=== PATIENT | male | born 1955 ===

== ENCOUNTER 2020-03-09 07:16 | Outpatient (REF) | payer OTHER, SELFPAY ==
[2020-03-09 07:50] LABS: MANUAL DIFF FLAG NO
[2020-03-09 07:59] LABS: Eosinophils Absolute Auto 0.2 X10*3/uL (0.0-0.4); Eosinophils Percent Auto 5.2 % (0-4); Hematocrit 41.6 % (42-52); Hemoglobin 13.7 g/dl (14.0-18.0); Lymphocytes Percent Auto 35.7 % (20-40); Mean Corpuscular HGB Conc 32.9 g/dl (31.0-36.0); Mean Corpuscular Hemoglobin 30.4 pg (27.0-33.0); Mean Corpuscular Volume 92.4 fL (80-98); Mean Platelet Volume 10.3 fL (9.4-12.4); Monocytes Absolute Auto 0.5 X10*3/uL (0.1-1.2); Monocytes Percent Auto 16.1 % (2-11); Neutrophils Absolute Auto 1.2 X10*3/uL (2.0-8.3); Platelet Count 201 X10*3/uL (160-400); Red Cell Distribution Width 12.4 % (11.0-16.0); White Blood Count 2.9 X10*3/uL (4.8-10.8)
[2020-03-09 08:44] LABS: Alanine Aminotransferase 23 U/L (0-40); Albumin Level 4.8 g/dL (3.5-5.0); Alkaline Phosphatase 60 U/L (39-117); Amylase 51 U/L (28-100); Anion Gap 11 (12-20); Aspartate Amino Transferase 23 U/L (5-37); Bilirubin Total 0.8 mg/dL (0.0-1.0); Blood Urea Nitrogen 22 mg/dL (9-16); Calcium 9.6 mg/dL (8.4-10.2); Carbon Dioxide 30 mmol/L (22-29); Chloride 105 mmol/L (96-108); Cholesterol 186 mg/dL; Estimated Glomerular Filt Rate > 60; Glucose Random 107 mg/dL (60-115); HDL Cholesterol 70 mg/dL; Iron 90 mcg/dL (45-160); LDL Cholesterol Calculated 104 mg/dl; Lipase 24 U/L (8-78); Percent Iron Saturation 29 % (15-50); Potassium 5.2 mmol/l (3.3-5.1); Sodium 141 mmol/L (135-145); Total Iron Binding Capacity 314 mcg/dL (228-428); Total Protein 6.9 g/dL (6.5-8.0); Triglycerides 62 mg/dL; Unsaturated Iron Binding 224 ug/dL
[2020-03-09 09:02] LABS: Lactate Dehydrogenase 164 U/L (118-273)
[2020-03-09 09:13] LABS: Ferritin 87 ng/mL (20-250); Prostate Specific Antigen 1.76 ng/mL (<0.05-4.0); Thyroid Stimulating Hormone 0.77 mIU/mL (0.32-4.0)
[2020-03-09 18:02] LABS: T4 Thyroxine 4.9 ug/dL (4.5-12.0)
[2020-03-11 05:12] LABS: Folate 13.6 ng/mL (> or = 4.0); Vitamin B12 522 pg/mL (200-900)
== END 2020-03-09 07:17 | disposition home or self-care (01) ==
LOC: HO.LAB 07:16
PROVIDERS: PCP Internal Medicine; Visit Provider Internal Medicine
DX: I63.9 Cerebral infarction, unspecified (principal); G47.33 Obstructive sleep apnea (adult) (pediatric); E78.00 Pure hypercholesterolemia, unspecified; F41.9 Anxiety disorder, unspecified; I10 Essential (primary) hypertension
CPT/HCPCS: 36415; 80053; 80061; 82150; 82607; 82728; 82746; 83540; 83615; 83690; 84153; 84436; 84443; 85025

== ENCOUNTER 2020-05-22 08:29 | Outpatient (REF) | payer OTHER, SELFPAY ==
[2020-05-22 09:05] LABS: COVID-19 Test Negative (Negative); IDNOW Serial# 55D5AD1C
== END 2020-05-22 08:30 | disposition home or self-care (01) ==
LOC: HO.EMPCOV 08:29
PROVIDERS: PCP Internal Medicine; Visit Provider Internal Medicine
DX: Z20.828 Contact with and (suspected) exposure to other viral communicable diseases (principal)
CPT/HCPCS: 87635; C9803

== ENCOUNTER 2020-06-15 07:06 | Outpatient (REF) | payer OTHER, SELFPAY ==
[2020-06-15 08:27] LABS: MANUAL DIFF FLAG NO
[2020-06-15 08:32] LABS: Basophils Percent Auto 1.1 % (0-2); Eosinophils Absolute Auto 0.2 X10*3/uL (0.0-0.4); Eosinophils Percent Auto 5.6 % (0-4); Hematocrit 41.8 % (42-52); Hemoglobin 13.9 g/dl (14.0-18.0); Imm Gran Abs Auto 0.01 X10*3/uL (0.00-0.03); Imm Gran Pct Auto 0.3 % (0.0-0.4); Immature Retic Fraction 5.9 % (2.3-13.4); Lymphocytes Absolute Auto 1.1 X10*3/uL (1.2-4.9); Lymphocytes Percent Auto 28.3 % (20-40); Mean Corpuscular HGB Conc 33.3 g/dl (31.0-36.0); Mean Corpuscular Volume 93.3 fL (80-98); Mean Platelet Volume 10.5 fL (9.4-12.4); Monocytes Absolute Auto 0.4 X10*3/uL (0.1-1.2); Monocytes Percent Auto 11.7 % (2-11); Platelet Count 222 X10*3/uL (160-400); Red Blood Count 4.48 X10*6/uL (4.60-5.80); Red Cell Distribution Width 11.9 % (11.0-16.0); Retic HGB Equivalent 36.1 pg (30.0-35.0); Reticulocyte Percent 1.4 % (0.5-1.8); Reticulocytes Absolute 0.062 X10*6/uL (0.026-0.095); White Blood Count 3.8 X10*3/uL (4.8-10.8)
[2020-06-15 09:00] LABS: Alanine Aminotransferase 40 U/L (0-40); Albumin Level 4.6 g/dL (3.5-5.0); Alkaline Phosphatase 62 U/L (39-117); Anion Gap 12 (12-20); Aspartate Amino Transferase 34 U/L (5-37); Bilirubin Total 0.8 mg/dL (0.0-1.0); Blood Urea Nitrogen 18 mg/dL (9-16); Calcium 9.6 mg/dL (8.4-10.2); Carbon Dioxide 30 mmol/L (22-29); Chloride 105 mmol/L (96-108); Cholesterol 146 mg/dL; Estimated Glomerular Filt Rate > 60; Glucose Random 103 mg/dL (60-115); HDL Cholesterol 73 mg/dL; Iron 78 mcg/dL (45-160); LDL Cholesterol Calculated 64 mg/dl; Percent Iron Saturation 27 % (15-50); Potassium 5.2 mmol/l (3.3-5.1); Sodium 142 mmol/L (135-145); Total Iron Binding Capacity 294 mcg/dL (228-428); Total Protein 6.7 g/dL (6.5-8.0); Triglycerides 46 mg/dL; Unsaturated Iron Binding 216 ug/dL
[2020-06-15 09:21] LABS: Ferritin 110 ng/mL (20-250)
[2020-06-17 04:39] LABS: Folate 15.6 ng/mL (> or = 4.0); Vitamin B12 516 pg/mL (200-900)
== END 2020-06-15 07:07 | disposition home or self-care (01) ==
LOC: HO.LAB 07:06
PROVIDERS: PCP Internal Medicine; Visit Provider Internal Medicine
DX: E78.00 Pure hypercholesterolemia, unspecified (principal); E78.2 Mixed hyperlipidemia; D64.9 Anemia, unspecified
CPT/HCPCS: 36415; 80053; 80061; 82607; 82728; 82746; 83540; 85025; 85045

== ENCOUNTER 2020-07-01 08:14 | Outpatient (REF) | payer OTHER, SELFPAY ==
--- NOTE | 2020-07-01 09:49 | MHC.AU.P13 ---
Adult Audiological Evaluation Date of Visit: 07/01/20 Reason for Appointment: History of hearing loss. Patient arrives to determine if there has been a change in his hearing. He reports he has a difficult time with distinction/clarity when listening to speech. Previous Hearing Test Results: At this clinic on 11/23/2017- Normal from 250-1000 Hz, steeply sloping to moderately-severe sensorineural hearing loss bilaterally Ear History: Recent Ear Drainage: None Reported Recent Ear Pain: None Reported Family History of Hearing Loss?: Yes Recent Ear Infections: None Reported History of Ear Wax Buildup: None Reported Bothersome Tinnitus/Ringing/Noises in Ears: Both Ears History of occupational noise exposure?: Yes Hearing Instrument History- Right Ear: Tank Filler: Recorded Future Model: [employer] AI 2400 THANIA Serial Number: [id number] Battery Size: 312 Dispensed By[facility] Hearing Instrument History- Left Ear: Tank Filler: Recorded Future Model: [employer] AI 2400 THANIA Serial Number: [id number] Battery Size: 312 Dispensed By: [facility] Otoscopy: Right Ear: Unremarkable Left Ear: Unremarkable Tympanometry: Tympanometry performed due to: Patient report of problem with sound quality/clarity Right Ear: Normal Middle Ear System (Type A) Left Ear: Normal Middle Ear System (Type A) Hearing Evaluation: Transducer(s) Used: Insert Earphones Method: Conventional Audiometry Stimuli Used: Pure Tones Right Ear: Description of Hearing: Normal from 250-1000 Hz, steeply sloping to severe sensorineural hearing loss Left Ear: Description of Hearing: Normal from 250-1000 Hz, steeply sloping to severe sensorineural hearing loss Speech Recognition Threshold (SRT): Method Used: Recorded Lists Stimuli Used: Spondee Words Right Ear: 25 dBHL Left Ear: 25 dBHL Word Discrimination: Method: Recorded Lists Word Lists Used: NU-6 Right Ear: 88% at 75 dBHL Left Ear: 96% at 75 dBHL Most Comfortable Level (MCL): Right Ear: 65 dBHL Left Ear: 65 dBHL QuickSIN: 8 dB SNR Loss- Indicates moderate difficulty hearing in noise, compared to the average listener Comparison: Compared to the most recent evaluation: Thresholds have decreased bilaterally. Recommendations: Audiological re-evaluation in one year. Hearing protection should be used when around loud noise. Hearing aid maintenance performed today. Hearing aid(s) reprogrammed with updated test results. Diagnosis: Primary Diagnosis: H90.3 Bilateral Sensorineural Hearing Loss Secondary Diagnosis: H93.13 Tinnitus, Bilateral Services Performed: Comprehensive Audiological Evaluation (CPT 57065), Tympanometry (CPT 99871) Signature: Provider: Eugene Love, CCC-A
== END 2020-07-01 08:15 | disposition home or self-care (01) ==
LOC: HO.SH 08:14
PROVIDERS: Visit Provider Internal Medicine
DX: H90.3 Sensorineural hearing loss, bilateral (principal); H93.13 Tinnitus, bilateral
CPT/HCPCS: 92557; 92567

== ENCOUNTER → 2020-12-26 08:07 | Outpatient (BNVA) | payer OTHER, SELFPAY | PROVIDERS: PCP Internal Medicine; Visit Provider Internal Medicine | DX: Z76.89 Persons encountering health services in other specified circumstances (principal) | CPT/HCPCS: 99203 ==

== ENCOUNTER → 2020-12-31 08:03 | Outpatient (BNVA) | payer OTHER, SELFPAY | PROVIDERS: PCP Internal Medicine; Visit Provider Physician Assistant Medical | DX: Z13.89 Encounter for screening for other disorder (principal) | CPT/HCPCS: 99213 ==

== ENCOUNTER → 2021-01-13 07:38 | Outpatient (BNVA) | payer OTHER, SELFPAY | PROVIDERS: PCP Internal Medicine; Visit Provider Physician Assistant Medical | DX: Z76.89 Persons encountering health services in other specified circumstances (principal) | CPT/HCPCS: 99213 ==

== ENCOUNTER 2021-03-22 06:56 | Outpatient (REF) | payer OTHER, SELFPAY ==
[2021-03-22 07:07] LABS: MANUAL DIFF FLAG NO
[2021-03-22 07:30] LABS: Basophils Percent Auto 0.8 % (0-2); Eosinophils Absolute Auto 0.3 X10*3/uL (0.0-0.4); Eosinophils Percent Auto 6.9 % (0-4); Hematocrit 42.4 % (42-52); Hemoglobin 13.9 g/dl (14.0-18.0); Imm Gran Abs Auto 0.01 X10*3/uL (0.00-0.03); Imm Gran Pct Auto 0.3 % (0.0-0.4); Immature Retic Fraction 6.4 % (2.3-13.4); Lymphocytes Absolute Auto 1.2 X10*3/uL (1.2-4.9); Lymphocytes Percent Auto 31.4 % (20-40); Mean Corpuscular HGB Conc 32.8 g/dl (31.0-36.0); Mean Corpuscular Hemoglobin 30.4 pg (27.0-33.0); Mean Corpuscular Volume 92.8 fL (80-98); Mean Platelet Volume 10.2 fL (9.4-12.4); Monocytes Absolute Auto 0.6 X10*3/uL (0.1-1.2); Monocytes Percent Auto 14.5 % (2-11); Neutrophils Absolute Auto 1.8 X10*3/uL (2.0-8.3); Neutrophils Percent Auto 46.1 % (45-73); Platelet Count 196 X10*3/uL (160-400); Red Blood Count 4.57 X10*6/uL (4.60-5.80); Red Cell Distribution Width 12.3 % (11.0-16.0); Retic HGB Equivalent 35.4 pg (30.0-35.0); Reticulocyte Percent 1.3 % (0.5-1.8); White Blood Count 3.8 X10*3/uL (4.8-10.8)
[2021-03-22 07:50] LABS: Estimated Average Glucose 117 mg/dL; Hemoglobin A1c % 5.7 %
[2021-03-22 07:58] LABS: Alanine Aminotransferase 45 U/L (0-40); Albumin Level 4.5 g/dL (3.5-5.0); Alkaline Phosphatase 68 U/L (39-117); Anion Gap 10 (12-20); Aspartate Amino Transferase 35 U/L (5-37); Bilirubin Total 0.9 mg/dL (0.0-1.0); Blood Urea Nitrogen 21 mg/dL (9-16); Calcium 9.6 mg/dL (8.4-10.2); Carbon Dioxide 29 mmol/L (22-29); Chloride 106 mmol/L (96-108); Cholesterol 132 mg/dL; Estimated Glomerular Filt Rate > 60; Glucose Random 111 mg/dL (60-115); HDL Cholesterol 57 mg/dL; Iron 83 mcg/dL (45-160); LDL Cholesterol Calculated 68 mg/dl; Percent Iron Saturation 29 % (15-50); Potassium 4.9 mmol/L (3.3-5.1); Sodium 140 mmol/L (135-145); Total Iron Binding Capacity 286 mcg/dL (228-428); Total Protein 6.5 g/dL (6.5-8.0); Triglycerides 38 mg/dL; Unsaturated Iron Binding 203 ug/dL
[2021-03-22 08:12] LABS: Ferritin 173 ng/mL (20-250); Thyroid Stimulating Hormone 0.75 uIU/mL (0.32-4.0)
[2021-03-24 04:19] LABS: Folate 18.8 ng/mL (> or = 4.0); Vitamin B12 531 pg/mL (200-900)
[2021-03-24 21:57] LABS: Prot Elec - Albumin 4.5 g/dL (3.8-4.8); Prot Elec - Alpha1 0.3 g/dL (0.2-0.3); Prot Elec - Alpha2 0.6 g/dL (0.5-0.9); Prot Elec - Beta 1 0.4 g/dL (0.4-0.6); Prot Elec - Beta 2 0.3 g/dL (0.2-0.5); Prot Elec - Gamma 0.5 g/dL (0.8-1.7); Prot Elec - Total Protein 6.6 g/dL (6.1-8.1)
== END 2021-03-22 06:57 | disposition home or self-care (01) ==
LOC: HO.LAB 06:56
PROVIDERS: PCP Internal Medicine; Visit Provider Internal Medicine
DX: D64.9 Anemia, unspecified (principal); R79.89 Other specified abnormal findings of blood chemistry; N40.1 Benign prostatic hyperplasia with lower urinary tract symptoms; R39.12 Poor urinary stream; E78.00 Pure hypercholesterolemia, unspecified; R73.01 Impaired fasting glucose; Z86.73 Personal history of transient ischemic attack (TIA), and cerebral infarction without residual deficits
CPT/HCPCS: 36415; 80053; 80061; 82607; 82728; 82746; 83036; 83540; 84165; 84439; 84443; 85025; 85045

== ENCOUNTER 2021-07-15 07:56 | Outpatient (REF) | payer OTHER, SELFPAY ==
--- NOTE | 2021-07-18 13:37 | MHC.AU.AHA ---
Addendum entered and electronically signed by Eugene Sharma CCC-A 07/18/21 13:48: Amended to add signer. Original Note: Adult Audiological Evaluation Date of Visit: 07/15/21 Manager Ambulatory Used: Not Applicable Reason for Appointment: Audiologic re-evaluation due to question of change in hearing ability. Samuel reports he has been having trouble with the sound quality of his hearing aids. Previous Hearing Test Results: 07/01/2020 [facility] Normal hearing thresholds 250-1000 Hz, dropping to a severe high frequency sensorineural hearing loss bilaterally. Ear History: Family History of Hearing Loss?: Yes Bothersome Tinnitus/Ringing/Noises in Ears: Both ears History of occupational noise exposure?: Yes History: Yes Medical History: Medical History: Stroke, High Blood Pressure, High Cholesterol Medication List: Rosuvistatin, Clonazepam, Lisinopril, Clopidogrel, Omeprazole, Ezetimibe, Multivitamin, Iron, Vitamin D3 Hearing Instrument History- Right Ear: Lead Press Operator: Spinback Model: [employer] AI 2400 THANIA Serial Number: [id number] Battery Size: 312 Dispensed By: [employer] Date of Fittin Hearing Instrument History- Left Ear: Lead Press Operator: Keli Model: Kehinde AI 2400 THANIA Serial Number: [id number] Battery Size: 312 [facility] By[facility] Date of Fittin Otoscopy: Right Ear: Unremarkable Left Ear: Unremarkable Tympanometry: Not performed at today's visit as all previous test results have indicated normal middle ear function bilaterally. Hearing Evaluation: Transducer(s) Used: Insert Earphones Bone Conduction Method: Conventional Audiometry Stimuli Used: Pure Tones Right Ear: Description of Hearing: Normal hearing thresholds 250-1000 Hz, steeply dropping to a severe high frequency sensorineural hearing loss Left Ear: Description of Hearing: Normal hearing thresholds 250-1000 Hz, steeply dropping to a severe high frequency sensorineural hearing loss Speech Recognition Threshold (SRT): Method Used: Monitored Live Voice Stimuli Used: Spondee Words Right Ear: 15 dB HL Left Ear: 15 dB HL Word Discrimination: Method: Recorded Lists Word Lists Used: NU-6 Right Ear: 96% at 65 dB HL Left Ear: 84% at 65 dB HL Comparison: Compared to the most recent evaluation: Hearing is stable. Recommendations: Hearing aid maintenance performed today. Hearing aids reprogrammed with Samuel noting improvement in sound quality while in office. If further adjustments are needed, he is advised to schedule another appointment. Audiological re-evaluation in one year. Will send a reminder card. Diagnosis: Primary Diagnosis: H90.3 Bilateral Sensorineural Hearing Loss Secondary Diagnosis: H93.13 Tinnitus, Bilateral Services Performed: Comprehensive Audiological Evaluation (CPT 14495) Signature: Provider: Eugene Sharma, CCC-A
== END 2021-07-15 07:57 | disposition home or self-care (01) ==
LOC: HO.SH 07:56
PROVIDERS: Visit Provider Internal Medicine
DX: Z01.118 Encounter for examination of ears and hearing with other abnormal findings (principal); H90.3 Sensorineural hearing loss, bilateral; H93.13 Tinnitus, bilateral
CPT/HCPCS: 92557

== ENCOUNTER 2021-08-15 07:54 | Outpatient (REF) | payer OTHER, SELFPAY ==
--- NOTE | ~2021-08-15 | US_ITS ---
EXAMINATION: US ABDOMEN COMPLETE CLINICAL INFORMATION: Elevated LFTs. COMPARISON: Ultrasound abdomen limited and CT abdomen and pelvis 10/12/2019. Ultrasound abdomen complete 11/06/2015. TECHNIQUE: Real-time imaging of the abdominal viscera. FINDINGS: PANCREAS: Partially visualized head and the body of the pancreas with homogeneous echotexture. The tail is obscured by overlying gas. ABDOMINAL AORTA: The proximal, mid, and distal segments are normal in caliber. INFERIOR VENA CAVA: Visualized portions are normal. LIVER: The liver is normal in size. The liver contour is normal. There is mild increased liver echogenicity. No focal hepatic lesion. There is no intrahepatic biliary duct dilatation seen. GALLBLADDER: There is a nonmobile echogenic or calcified lesion along the inner gallbladder wall, question cholesterolosis versus an adherent radiopaque calculi. No additional lesions seen. The gallbladder is physiologically distended without evidence of stones, sludge, polyps, wall thickening or pericholecystic fluid. COMMON BILE DUCT: Normal in caliber measuring 0.2 cm in diameter. RIGHT KIDNEY: There is anechoic cyst in the lower pole measuring 2.2 x 1.1 x 1.3 cm. No hydronephrosis or renal calculi. The kidney measures 10.9 cm in maximum dimension. LEFT KIDNEY: There is anechoic cyst in lower pole measuring 1.2 x 0.8 x 1.1 cm. No hydronephrosis or renal calculi. The kidney measures 10.8 cm in maximum dimension. SPLEEN: Normal. The spleen measures 9.8 cm in maximum dimension. FREE FLUID: None. US/US abdomen complete IMPRESSION: Echogenic adherent stone versus cholesterolosis. No gallbladder wall thickening. Mild hepatic steatosis. Bilateral renal cysts. No echogenic renal calculi or hydronephrosis.
== END 2021-08-15 07:55 | disposition home or self-care (01) ==
LOC: HO.US 07:54
PROVIDERS: Visit Provider Internal Medicine
DX: K76.0 Fatty (change of) liver, not elsewhere classified (principal); R94.5 Abnormal results of liver function studies
CPT/HCPCS: 76700

== ENCOUNTER 2021-08-18 15:27 | Outpatient (REF) | payer OTHER, SELFPAY ==
[2021-08-18 15:50] LABS: MANUAL DIFF FLAG NO
[2021-08-18 16:02] LABS: Basophils Percent Auto 0.9 % (0-2); Eosinophils Absolute Auto 0.1 X10*3/uL (0.0-0.4); Eosinophils Percent Auto 2.4 % (0-4); Hematocrit 38.5 % (42.0-52.0); Imm Gran Abs Auto 0.02 X10*3/uL (0.00-0.03); Imm Gran Pct Auto 0.4 % (0.0-0.4); Lymphocytes Percent Auto 23.1 % (20-40); Mean Corpuscular HGB Conc 33.8 g/dl (31.0-36.0); Mean Corpuscular Hemoglobin 30.9 pg (27.0-33.0); Mean Corpuscular Volume 91.4 fL (80.0-98.0); Mean Platelet Volume 9.7 fL (9.4-12.4); Monocytes Absolute Auto 0.5 X10*3/uL (0.1-1.2); Monocytes Percent Auto 11.5 % (2-11); Neutrophils Absolute Auto 2.8 x10*3/uL (2.0-8.3); Neutrophils Percent Auto 61.7 % (45-73); Platelet Count 209 X10*3/uL (160-400); Red Blood Count 4.21 X10*6/uL (4.60-5.80); Red Cell Distribution Width 12.1 % (11.0-16.0); White Blood Count 4.5 X10*3/uL (4.8-10.8)
[2021-08-18 16:43] LABS: Alanine Aminotransferase 37 U/L (0-40); Albumin Level 4.6 g/dL (3.5-5.0); Alkaline Phosphatase 60 U/L (39-117); Aspartate Amino Transferase 30 U/L (5-37); Bilirubin Direct 0.3 mg/dL (0.0-0.5); Bilirubin Total 0.6 mg/dL (0.0-1.0); Total Protein 6.6 g/dL (6.5-8.0)
[2021-08-19 04:14] LABS: HBS Num1 2.52 mIU/mL (0-7.99); HBc Num1 0.12 S/CO (0.00-0.79); HBsAGNum1 0.19 S/CO (0.00-0.99); Hepatitis B Core Antibody Nonreactive (Nonreactive); Hepatitis B Surface Antigen Negative (Negative); ~Hepatitis B Surface Antibody NONREACTIVE (Nonreactive)
[2021-08-19 04:24] LABS: ~HepC Num1 0.11 S/CO (0.00-0.79); ~Hepatitis C Antibody Nonreactive (Nonreactive)
[2021-08-20 05:00] LABS: Hepatitis A Antibody IgG Nonreactive (Nonreactive); ~Hepatitis A Antibody IgG 0.22 S/CO (0.00-0.99)
[2021-08-20 15:26] LABS: Anti Nuclear Antibody Screen NEGATIVE (NEGATIVE)
[2021-08-21 14:25] LABS: Mitochondrial Antibodies NEGATIVE (NEGATIVE)
[2021-08-22 12:02] LABS: Smooth Muscle Antibody <20 U (<20)
== END 2021-08-18 15:28 | disposition home or self-care (01) ==
LOC: HO.LAB 15:27
PROVIDERS: Absent Provider Internal Medicine; PCP Internal Medicine; Visit Provider Internal Medicine Gastroenterology
DX: R94.5 Abnormal results of liver function studies (principal)
CPT/HCPCS: 36415; 80076; 85025; 86015; 86038; 86039; 86255; 86256; 86704; 86706; 86708; 86803; 87340

== ENCOUNTER 2022-04-03 06:04 | Outpatient (REF) | payer OTHER, SELFPAY ==
[2022-04-03 06:16] LABS: MANUAL DIFF FLAG NO
[2022-04-03 07:39] LABS: Basophils Percent Auto 0.8 % (0-2); Eosinophils Absolute Auto 0.2 X10*3/uL (0.0-0.4); Eosinophils Percent Auto 4.2 % (0-4); Hematocrit 39.9 % (42.0-52.0); Hemoglobin 13.6 g/dl (14.0-18.0); Imm Gran Abs Auto 0.01 X10*3/uL (0.00-0.03); Imm Gran Pct Auto 0.3 % (0.0-0.4); Immature Retic Fraction 5.6 % (2.3-13.4); Lymphocytes Absolute Auto 1.2 X10*3/uL (1.2-4.9); Mean Corpuscular HGB Conc 34.1 g/dl (31.0-36.0); Mean Corpuscular Hemoglobin 31.4 pg (27.0-33.0); Mean Corpuscular Volume 92.1 fL (80.0-98.0); Mean Platelet Volume 10.4 fL (9.4-12.4); Monocytes Absolute Auto 0.5 X10*3/uL (0.1-1.2); Monocytes Percent Auto 14.1 % (2-11); Neutrophils Absolute Auto 1.9 x10*3/uL (2.0-8.3); Neutrophils Percent Auto 49.6 % (45-73); Platelet Count 208 X10*3/uL (160-400); Red Blood Count 4.33 X10*6/uL (4.60-5.80); Red Cell Distribution Width 12.3 % (11.0-16.0); Retic HGB Equivalent 36.4 pg (30.0-35.0); Reticulocyte Percent 1.4 % (0.5-1.8); Reticulocytes Absolute 0.061 X10*6/uL (0.026-0.095); White Blood Count 3.8 X10*3/uL (4.8-10.8)
[2022-04-03 07:54] LABS: Alanine Aminotransferase 31 U/L (0-40); Albumin Level 4.3 g/dL (3.5-5.0); Alkaline Phosphatase 63 U/L (39-117); Anion Gap 14 (12-20); Aspartate Amino Transferase 28 U/L (5-37); Bilirubin Total 1.1 mg/dL (0.0-1.0); Blood Urea Nitrogen 15 mg/dL (9-16); Calcium 9.3 mg/dL (8.4-10.2); Carbon Dioxide 27 mmol/L (22-29); Chloride 105 mmol/L (96-108); Cholesterol 147 mg/dL; Estimated Glomerular Filt Rate > 60; Glucose Random 106 mg/dL (60-115); HDL Cholesterol 68 mg/dL; Iron 122 mcg/dL (45-160); LDL Cholesterol Calculated 70 mg/dl; Percent Iron Saturation 45 % (15-50); Potassium 4.6 mmol/L (3.3-5.1); Sodium 141 mmol/L (135-145); Total Iron Binding Capacity 273 mcg/dL (228-428); Total Protein 6.3 g/dL (6.5-8.0); Triglycerides 49 mg/dL; Unsaturated Iron Binding 151 ug/dL
[2022-04-03 07:56] LABS: Estimated Average Glucose 120 mg/dL; Hemoglobin A1c % 5.8 %
[2022-04-03 08:20] LABS: Ferritin 150 ng/mL (20-250); Free T4 (Free Thyroxine) 0.77 ng/dL (0.71-1.85); Prostate Specific Antigen Scr 1.45 ng/mL (<0.05-4.0); Thyroid Stimulating Hormone 1.03 uIU/mL (0.32-4.0)
[2022-04-03 08:24] LABS: Folate 17.3 ng/mL (> or = 4.0); Vitamin B12 376 pg/mL (200-900)
== END 2022-04-03 06:05 | disposition home or self-care (01) ==
LOC: HO.LAB 06:04
PROVIDERS: PCP Internal Medicine; Visit Provider Internal Medicine
DX: D64.9 Anemia, unspecified (principal); E78.00 Pure hypercholesterolemia, unspecified; N40.1 Benign prostatic hyperplasia with lower urinary tract symptoms; R39.12 Poor urinary stream; R73.01 Impaired fasting glucose; Z12.5 Encounter for screening for malignant neoplasm of prostate
CPT/HCPCS: 36415; 80053; 80061; 82607; 82728; 82746; 83036; 83540; 84153; 84439; 84443; 85025; 85045

== ENCOUNTER 2022-04-10 11:31 | Outpatient (REF) | payer OTHER, SELFPAY ==
--- NOTE | ~2022-04-10 | CT_ITS ---
EXAMINATION: CT MAXILLOFACIAL WITHOUT CONTRAST CLINICAL INFORMATION: Nasal congestion. COMPARISON: MRI scan of the brain and CT of the head and neck extending 09/11/2019. TECHNIQUE: Multidetector helical imaging was performed in the axial plane with generation of coronal and sagittal reformatted images. DLP: 110 mGy-cm. FINDINGS: FRONTAL SINUSES AND DRAINAGE PATHWAYS: The frontal sinuses are well developed bilaterally. They are well-aerated with patent frontal sinus drainage pathways. MAXILLARY SINUSES AND DRAINAGE PATHWAYS: The maxillary sinuses are well-developed bilaterally. There is trace mucoperiosteal thickening in the inferior left maxillary sinus. The ostiomeatal complexes are patent bilaterally. ETHMOID SINUSES: The ethmoid sinuses are well-developed bilaterally. There is minimal mucoperiosteal thickening in the anterior right ethmoid air cells. SPHENOID SINUSES AND DRAINAGE PATHWAYS: The sphenoid sinuses are well-aerated bilaterally. They are clear with patent sphenoethmoidal recesses. NASAL CAVITY AND NASAL SEPTUM: The nasal septum is deviated to the left anteriorly and is a left-sided bony nasal septal spur extending between the left middle and inferior turbinate bones. No large nasal cavity masses or polyps. ADDITIONAL RELEVANT FINDINGS: The lamina papyracea are intact. The nasal passages are clear. The carotid canals are normally covered by bone. The ethmoid roofs are relatively symmetric. No periapical disease is seen. The TMJs and orbits are normal. The visualized mastoid air cells are clear. Limited evaluation demonstrates no acute intracranial findings. CT/CT sinus wo IV con IMPRESSION: 1. There is no significant active paranasal sinus disease; there is mild mucoperiosteal thickening in the left maxillary and right ethmoid sinuses. 2. The nasal septum is deviated to the left and there is a left-sided bony nasal septal spur. 3. The ostiomeatal complexes are patent bilaterally.
== END 2022-04-10 11:32 | disposition home or self-care (01) ==
LOC: HO.CT 11:31
PROVIDERS: PCP Internal Medicine; Visit Provider Internal Medicine
DX: R09.81 Nasal congestion (principal)
CPT/HCPCS: 70486

== ENCOUNTER → 2022-08-13 09:22 | Outpatient (BNVA) | payer OTHER, SELFPAY | PROVIDERS: PCP Internal Medicine; Visit Provider Physician Assistant | DX: Z13.89 Encounter for screening for other disorder (principal) | CPT/HCPCS: 99203 ==

== ENCOUNTER 2022-09-08 15:09 | Outpatient (REF) | payer OTHER, SELFPAY ==
--- NOTE | ~2022-09-08 | XR_ITS ---
EXAMINATION: XR LUMBOSACRAL SPINE CLINICAL INFORMATION: Reason for Exam M54.40 - Lumbago with sciatica, unspecified side COMPARISON: Lumbar spine radiographs 12/27/2014 TECHNIQUE: 4 views of the lumbar spine FINDINGS: 5 nonrib-bearing lumbar-type vertebral bodies. Vertebral body heights are maintained. Grade retrolisthesis of L2 on L3. No instability on flexion extension views. Moderate to advanced multilevel degenerative disc disease with loss of disc space height and facet arthropathy, progressed from prior. Paravertebral soft tissues are unremarkable. XR/XR lumbar spine 4V min IMPRESSION: * Moderate to advanced spondylosis of the lumbar spine, as above detailed, progressed from prior. * Spondylolisthesis, as above detailed.
== END 2022-09-08 15:10 | disposition home or self-care (01) ==
LOC: HO.HOSX 15:09
PROVIDERS: PCP Internal Medicine; Visit Provider Physician Assistant
DX: M54.40 Lumbago with sciatica, unspecified side (principal)
CPT/HCPCS: 72110; 99202

== ENCOUNTER 2022-09-09 07:55 | Outpatient (REF) | payer OTHER, SELFPAY | END 2022-09-09 07:56 | disposition home or self-care (01) | LOC: HO.SH 07:55 | PROVIDERS: Visit Provider Internal Medicine | DX: H90.3 Sensorineural hearing loss, bilateral (principal); H93.13 Tinnitus, bilateral | CPT/HCPCS: 92557; 92567 ==

== ENCOUNTER 2022-09-11 11:20 | Outpatient (REF) | payer OTHER, SELFPAY ==
--- NOTE | ~2022-09-11 | MR_ITS ---
MR LUMBAR SPINE WITHOUT IV CONTRAST CLINICAL INFORMATION: Lumbago with sciatica. COMPARISON: Lumbar spine radiographs 09/09/2022. Lumbar spine MRI 09/25/2019. TECHNIQUE: MRI of the lumbar spine was obtained using routine sequences without contrast. FINDINGS: There is grade 1 retrolisthesis of L2 on L3. Lumbar alignment is otherwise maintained. The vertebral body heights are preserved. Progressive moderate to severe disc volume loss at L2-L3 and L5-S1. There is disc desiccation at all lumbar levels. There is no bone marrow edema. There are no acute fractures. Conus terminates at the L1 level. Simple bilateral renal cysts for which no further imaging follow-up is warranted. Retroaortic left renal vein. Bilateral perinephric stranding. Sigmoid diverticulosis. Hypertrophic degenerative changes across the SI joints bilaterally. L1-L2: Disc contour is normal. No central canal stenosis and no foraminal stenosis. L2-L3: Grade 1 retrolisthesis. Diffuse annular disc bulge. No central canal stenosis. There is mild foraminal encroachment bilaterally. Disc contacts the extraforaminal right L2 nerve root, unchanged. L3-L4: Diffuse annular disc bulge with a superimposed similar left lateral disc osteophyte protrusion resulting in moderate left foraminal stenosis and mass effect on the extraforaminal left L3 nerve root. L4-L5: Diffuse annular disc bulge and severe bilateral facet arthropathy and ligamentum flavum thickening. No central canal stenosis. Similar moderate bilateral foraminal stenosis with mild mass effect on the exiting L4 nerve roots bilaterally. L5-S1: Diffuse disc osteophyte complex and severe bilateral facet arthropathy. No central canal stenosis. Stable severe right and moderate left foraminal stenosis with compression of the exiting right L5 nerve root. MR/MR lumbar spine wo con IMPRESSION: - At L5-S1, multifactorial degenerative changes result in stable severe right and moderate left foraminal stenosis with compression of the exiting right L5 nerve root. - At L4-L5, multifactorial degenerative changes result in similar moderate bilateral foraminal stenosis with mild mass effect on the exiting L4 nerve roots bilaterally. - At L3-L4, a left lateral disc osteophyte protrusion results in similar moderate left foraminal stenosis and mass effect on the extraforaminal left L3 nerve root. - At L2-L3, a diffuse annular disc bulge continues to contact the extraforaminal right L2 nerve root.
== END 2022-09-11 11:21 | disposition home or self-care (01) ==
LOC: HO.MRI 11:20
PROVIDERS: PCP Internal Medicine; Visit Provider Physician Assistant
DX: M54.40 Lumbago with sciatica, unspecified side (principal)
CPT/HCPCS: 72148

== ENCOUNTER → 2022-09-17 14:45 | Outpatient (BNVA) | payer OTHER, SELFPAY | PROVIDERS: PCP Internal Medicine; Visit Provider Physician Assistant | DX: Z13.89 Encounter for screening for other disorder (principal) ==

== ENCOUNTER → 2022-10-01 10:44 | Outpatient (BNVA) | payer OTHER, SELFPAY | PROVIDERS: PCP Internal Medicine; Visit Provider Nurse Practitioner Family ==

== ENCOUNTER 2022-10-13 05:59 | Outpatient (REF) | payer OTHER, SELFPAY ==
--- NOTE | ~2022-10-13 | FL_ITS ---
EXAMINATION: XR FLUOROSCOPY WITH IMAGES CLINICAL INFORMATION: Spondylosis without myelopathy or radiculopathy COMPARISON: None available. TECHNIQUE: Fluoroscopy Supervised By: Dr. Jamie Lundy. Fluoroscopy Time: 0.2 minutes. Cumulative Dose: 6.62 mGy. DAP: 1.8 Gycm2. Images: 2. FINDINGS: There are 2 images obtained with needle positioned adjacent to posterolateral L5 vertebral body with contrast opacifying the extra dural and the epidural space. Mild loss of L5-S1 disc height with ventral spondylosis is noted. FL/FL guidance in treatment room IMPRESSION: Fluoroscopy was provided to referring physician for pain management. There are degenerative disc changes with ventral and mild posterior spondylosis at the L5-S1 disc level.
== END 2022-10-13 06:00 | disposition home or self-care (01) ==
LOC: CF 05:59
PROVIDERS: Visit Provider Anesthesiology
DX: M47.816 Spondylosis without myelopathy or radiculopathy, lumbar region (principal); M51.36 Other intervertebral disc degeneration, lumbar region; M54.40 Lumbago with sciatica, unspecified side; Z79.01 Long term (current) use of anticoagulants
CPT/HCPCS: 64483; Q9965

== ENCOUNTER → 2022-10-30 12:59 | Outpatient (BNVA) | payer OTHER, SELFPAY | PROVIDERS: PCP Internal Medicine; Visit Provider Physician Assistant ==

== ENCOUNTER → 2022-11-26 12:29 | Outpatient (BNVA) | payer OTHER, SELFPAY | PROVIDERS: PCP Internal Medicine; Visit Provider Physician Assistant | DX: Z13.89 Encounter for screening for other disorder (principal) | CPT/HCPCS: 99203 ==

== ENCOUNTER 2022-12-03 07:23 | Day surgery (SDC) | payer OTHER, SELFPAY ==
--- NOTE | 2022-11-19 | ECG_ITS ---
Test Reason : preop Blood Pressure : / mmHG Vent. Rate : 061 BPM Atrial Rate : 061 BPM P-R Int : 148 ms QRS Dur : 088 ms QT Int : 404 ms P-R-T Axes : 050 050 035 degrees QTc Int : 406 ms Normal sinus rhythm Normal ECG When compared with ECG of 15-NOV-2019 08:34, No significant change was found Referred By: Bindu Gardner Electronically Signed By:Yoshi Torres
[2022-11-19 12:08] VITALS: BP 141/80; PULSE 70; RESP 16; O2SAT 97; BMI 23.1
--- NOTE | 2022-11-19 12:37 | HO.ANESPROP2 ---
Documented by User: Bindu Gradner NP 11/20/22 12:21 HPI - Anesthesia Eval Consult details Narrative: 67yo M for Left Laminectomy Lumbar Decompression (Foraminotomy) No recent illness No CP/SOB with physical labor CVA 08/2019 - continues on plavix, no residual APOLINAR with CPAP QHS GERD well controlled with ppi 2-3 beers daily PMFSH Active Problems Active Problems: All Active Problems (Updated 11/19/22 @ 12:06 by Gissell Culver RN) Anemia (Acute) Tinnitus (Acute) Impacted cerumen of right ear (Acute) Annual physical exam (Acute) Generalized anxiety disorder (Acute) Fatty liver (Acute) Cholelithiasis (Acute) Sinus congestion (Acute) Back pain of lumbar region with sciatica (Acute) Lumbar degenerative disc disease (Acute) Lumbar spondylosis (Acute) Anticoagulant long-term use (Acute) Hypercholesterolemia (Acute) Impaired fasting blood sugar (Acute) History of CVA (cerebrovascular accident) (Acute) GERD (gastroesophageal reflux disease) (Acute) BPH (benign prostatic hyperplasia) (Acute) Hypertension (Acute) Anxiety (Acute) Obstructive sleep apnea (Acute) Past Medical History Medical History Anxiety BPH (benign prostatic hyperplasia) Cervical spinal stenosis GERD (gastroesophageal reflux disease) History of CVA (cerebrovascular accident) [place] (hard of hearing) Hypercholesterolemia Hypercholesterolemia with endogenous hyperglyceridemia Hypertension Impaired fasting blood sugar Obstructive sleep apnea Pancreatitis PONV (postoperative nausea and vomiting) Family History Family History Father Medical history unknown Mother Diabetes CVD (cardiovascular disease) CHF (congestive heart failure) Gout Arthritis Paternal Uncle Colon cancer Daughter HPV (human papilloma virus) infection Son In good health Sister Breast cancer in situ Family history of problems with anesthesia: No Surgical History Surgical History History of arthroscopy of right knee History of hemorrhoidectomy History of inguinal hernia repair History of vasectomy Hx of colonoscopy History of Problems with Anesthesia: No Social History Social History Housing: House Are you a primary medicare insurance specialist to a significant other at home: No Do you presently have visiting nurse or other home services: No Alcohol intake: current Patient Tobacco Use Status: Former Tobacco user Quit Date: 1975 Tobacco use type: Cigarette Years Smoked: 3 months of smoking 1975 e-Cigarette/Vaping Use: Never Used Second Hand Smoke Exposure: No Use of substances other than those prescribed or required for medical reasons: No Have you been hit, kicked, punched, or otherwise hurt by someone within the past year? If so, by whom?: No Are you DNR?: No Advance Directives: Yes Advance Directives Information Provided: No Advance Directives on File: Yes Advance Directives Date on File: 06/28/17 Recently lost weight without trying: Yes How much weight loss: 24-33 pounds Eating poorly because of decreased appetite: No Nutrition screen score: 5 Nutrition Risks: No Nutritional Risk Poor oral hygiene: No Current occupational status: employed Cognitive needs: No Hearing needs: No Vision needs: No Meds Allergies Allergy/AdvReac Type Severity Reaction Status Date / Time eszopiclone [Lunesta] Allergy Intermediate Hallucinati Verified 11/19/22 12:01 ons fluticasone [Flovent HFA] Allergy Intermediate Unknown Verified 11/19/22 12:01 prednisone [Prednisone] Allergy Intermediate SKIN Verified 11/19/22 12:01 CRAWLED-STEROID INHALER Home Medications Medication Instructions Recorded Confirmed Last Taken Type cholecalciferol (vitamin D3) 10 10 mcg PO DAILY 03/20/20 11/19/22 Unknown History mcg (400 unit) capsule multivitamin 1 tab PO DAILY 03/20/20 11/19/22 Unknown History iron PO DAILY 11/19/22 Unknown History Exam Exam Date and Time: November 19, 2022 1237 Height,Weight and Vital Signs: Height 5 ft 8 in Weight 68.946 kg Last Vital Signs Pulse 70 11/19/22 12:08 Resp 16 11/19/22 12:08 BP 141/80 H 11/19/22 12:08 Pulse Ox 97 11/19/22 12:08 O2 Del Method Room Air 11/19/22 12:08 Pertinent Lab Results Pertinent Lab Results: Lab Results 11/19/22 11/19/22 Range/Units 13:09 13:09 WBC 4.6 L (4.8-10.8) X10*3/uL RBC 4.39 L (4.60-5.80) X10*6/uL Hgb 13.6 L (14.0-18.0) g/dl Hct 40.6 L (42.0-52.0) % MCV 92.5 (80.0-98.0) fL MCH 31.0 (27.0-33.0) pg MCHC 33.5 (31.0-36.0) g/dl RDW 11.9 (11.0-16.0) % Plt Count 203 (160-400) X10*3/uL MPV 10.4 (9.4-12.4) fL Immature Gran % (Auto) 0.2 (0.0-0.4) % Neut % (Auto) 64.4 (45-73) % Lymph % (Auto) 21.5 (20-40) % [place] % (Auto) 12.0 H (2-11) % Eos % (Auto) 1.5 (0-4) % Baso % (Auto) 0.4 (0-2) % Lymph # (Auto) 1.0 L (1.2-4.9) X10*3/uL [place] # (Auto) 0.6 (0.1-1.2) X10*3/uL Eos # (Auto) 0.1 (0.0-0.4) X10*3/uL Baso # (Auto) 0.0 (0.0-0.2) X10*3/uL Abs Immat Gran (auto) 0.01 (0.00-0.03) X10*3/uL Absolute Neuts (auto) 3.0 (2.0-8.3) x10*3/uL Absolute Nucleated RBC 0.000 (0.0-0.012) X10*3/uL Nucleated RBC % (auto) 0.0 (0.0-0.2) /100WBC Sodium 141 (135-145) mmol/L Potassium 4.4 (3.3-5.1) mmol/L Chloride 106 (96-108) mmol/L Carbon Dioxide 28 (22-29) mmol/L Anion Gap 11 L (12-20) BUN 17 H (9-16) mg/dL Creatinine 0.84 (0.5-1.4) mg/dL Estim Creat Clear Calc 83.6 Estimated GFR > 60 Random Glucose 109 (60-115) mg/dL Calcium 9.7 (8.4-10.2) mg/dL Narrative Narrative: EKG 10/2022 Vent. Rate : 061 BPM ? ? Atrial Rate : 061 BPM ?? P-R Int : 148 ms? QRS Dur : 088 ms ? ? QT Int : 404 ms ? ? ? P-R-T Axes : 050 050 035 degrees ?? QTc Int : 406 ms ? Normal sinus rhythm Normal ECG When compared with ECG of 15-NOV-2019 08:34, No significant change was found Airway Mallampati Class: I TM Dist: >3cm Neck ROM: Full Loose/Missing/Broken Teeth: Yes (1 x lower left molar pulled, ~3 crowns) Heart: RRR Lungs: CTAB Assessment and Plan Assessment Anesthesia Assessment: Anesthesia Plan Discussed and PAT Visit Final Anesthetic Review Family History of Problems with Anesthesia: No History of Problems with Anesthesia: No Documented by User: Kenneth Hilton MD 12/03/22 11:25 [facility] Past Medical History Medical History Anxiety BPH (benign prostatic hyperplasia) Cervical spinal stenosis GERD (gastroesophageal reflux disease) History of CVA (cerebrovascular accident) [place] (hard of hearing) Hypercholesterolemia Hypercholesterolemia with endogenous hyperglyceridemia Hypertension Impaired fasting blood sugar Obstructive sleep apnea Pancreatitis PONV (postoperative nausea and vomiting) Family History Family History Father Medical history unknown Mother Diabetes CVD (cardiovascular disease) CHF (congestive heart failure) Gout Arthritis Paternal Uncle Colon cancer Daughter HPV (human papilloma virus) infection Son In good health Sister Breast cancer in situ Surgical History Surgical History History of arthroscopy of right knee History of hemorrhoidectomy History of inguinal hernia repair History of vasectomy Hx of colonoscopy Social History Social History Housing: House Are you a primary medicare insurance specialist to a significant other at home: No Do you presently have visiting nurse or other home services: No Alcohol intake: current Patient Tobacco Use Status: Former Tobacco user Quit Date: 1975 Tobacco use type: Cigarette Years Smoked: 3 months of smoking 1975 e-Cigarette/Vaping Use: Never Used Second Hand Smoke Exposure: No Use of substances other than those prescribed or required for medical reasons: No Have you been hit, kicked, punched, or otherwise hurt by someone within the past year? If so, by whom?: No Are you DNR?: No Advance Directives: Yes Advance Directives Information Provided: No Advance Directives on File: Yes Advance Directives Date on File: 06/28/17 Recently lost weight without trying: Yes How much weight loss: 24-33 pounds Eating poorly because of decreased appetite: No Nutrition screen score: 5 Nutrition Risks: No Nutritional Risk Poor oral hygiene: No Current occupational status: employed Cognitive needs: No Hearing needs: No Vision needs: No Meds Allergies Allergy/AdvReac Type Severity Reaction Status Date / Time eszopiclone [Lunesta] Allergy Intermediate Hallucinati Verified 11/19/22 12:01 ons fluticasone [Flovent HFA] Allergy Intermediate Unknown Verified 11/19/22 12:01 prednisone [Prednisone] Allergy Intermediate SKIN Verified 11/19/22 12:01 CRAWLED-STEROID INHALER Home Medications Medication Instructions Recorded Confirmed Last Taken Type cholecalciferol (vitamin D3) 10 10 mcg PO DAILY 03/20/20 11/19/22 Unknown History mcg (400 unit) capsule multivitamin 1 tab PO DAILY 03/20/20 11/19/22 Unknown History iron PO DAILY 11/19/22 Unknown History Assessment and Plan Final Anesthetic Review NPO: Yes ASA Class: III Final Preanesthetic Review: No Changes in Pt Med Stat, Meds/Allgs Chart Reviewed, Consent Obtained/Reviewed and Anes Risks/Benef Reviewed Patient Risk: Intermediate Procedure Risk: Low Anesthetic Plan Anesthetic Plan: GA Disposition: Standard PACU
[2022-11-19 13:12] LABS: MANUAL DIFF FLAG NO
[2022-11-19 14:07] LABS: Basophils Percent Auto 0.4 % (0-2); Eosinophils Absolute Auto 0.1 X10*3/uL (0.0-0.4); Eosinophils Percent Auto 1.5 % (0-4); Hematocrit 40.6 % (42.0-52.0); Hemoglobin 13.6 g/dl (14.0-18.0); Imm Gran Abs Auto 0.01 X10*3/uL (0.00-0.03); Imm Gran Pct Auto 0.2 % (0.0-0.4); Lymphocytes Percent Auto 21.5 % (20-40); Mean Corpuscular HGB Conc 33.5 g/dl (31.0-36.0); Mean Corpuscular Volume 92.5 fL (80.0-98.0); Mean Platelet Volume 10.4 fL (9.4-12.4); Monocytes Absolute Auto 0.6 X10*3/uL (0.1-1.2); Neutrophils Percent Auto 64.4 % (45-73); Platelet Count 203 X10*3/uL (160-400); Red Blood Count 4.39 X10*6/uL (4.60-5.80); Red Cell Distribution Width 11.9 % (11.0-16.0); White Blood Count 4.6 X10*3/uL (4.8-10.8)
[2022-11-19 14:31] LABS: Anion Gap 11 (12-20); Blood Urea Nitrogen 17 mg/dL (9-16); Calcium 9.7 mg/dL (8.4-10.2); Carbon Dioxide 28 mmol/L (22-29); Chloride 106 mmol/L (96-108); Creatinine Clr Calc Pharmacy 83.6; Estimated Glomerular Filt Rate > 60; Glucose Random 109 mg/dL (60-115); Potassium 4.4 mmol/L (3.3-5.1); Sodium 141 mmol/L (135-145)
[2022-12-03] VITALS (9 sets, daily range): BP systolic 119–144; BP diastolic 66–80; PULSE 55–83; RESP 12–18; TEMP 36.1–36.8; O2SAT 97–100; BMI 24.3
--- NOTE | ~2022-12-03 | FL_ITS ---
EXAMINATION: XR FLUOROSCOPY WITH IMAGES CLINICAL INFORMATION: Laminectomy. Lumbar decompression, left COMPARISON: None available. TECHNIQUE: Fluoroscopy Supervised By: Dr. Cates. Fluoroscopy Time: 0.0 min. Cumulative Dose: 0.820 mGy. DAP: 0.0142 Gycm2. Images: 1. FINDINGS: Single lateral interoperative image demonstrates surgical instruments projecting posterior to the L5 vertebral body. FL/FL guidance in OR IMPRESSION: Fluoroscopy guidance for lumbar spine surgery.
--- NOTE | 2022-12-03 07:27 | MHC.SHP ---
Pre-Procedural Eval Section A Date of Service: 12/03/22 The patient is an INPATIENT: No The History & Physical has been completed within 30 days and I have reviewed it.: No Section B Chief Complaint: Lumbago with sciatica, unspecified side Allergies: Allergies Allergy/AdvReac Type Severity Reaction Status Date / Time eszopiclone [Lunesta] Allergy Intermediate Hallucinati Verified 11/19/22 12:01 ons fluticasone [Flovent HFA] Allergy Intermediate Unknown Verified 11/19/22 12:01 prednisone [Prednisone] Allergy Intermediate SKIN Verified 11/19/22 12:01 CRAWLED-STEROID INHALER Review of Systems Sugical H&P ROS: Negative: Constitution, Cardiovascular, Respiratory, Neurological, Psychiatric, Hem-Onc, Allergic/Immunologic, Gastrointestinal, Genitourinary, Musculoskeletal, Integumentary, Endocrine and Eyes/Ears/Nose/Throat Exam Surgical H&P Exam: Not Evaluated: HEENT, Not Evaluated: Heart, Not Evaluated: Lungs, Not Evaluated: Extremities, Not Evaluated: Abdomen, Not Evaluated: Skin and Not Evaluated: Neurological Plan Diagnosis/Plan: Unchanged I have reviewed the history and physical and performed a pertinent physical examination on my patient. No changes have occurred unless specified. left L5 foraminotomy and nerve decompression Time Spent With Patient Time: Total time managing care of this patient today ___10_ minutes.
[2022-12-03] MEDS: Scopolamine 1.5 MG PATCH.TD.3 TRANSDERMA (08:20)
[2022-12-03] MEDS: Lactated Ringers 1,000 ML 100 ML IVCONT (08:20)
[2022-12-03] MEDS: methocarbamoL 750 MG TABLET PO (08:23)
[2022-12-03] MEDS: Gabapentin 300 MG CAPSULE PO (08:23)
--- NOTE | 2022-12-03 10:33 | P.OP_ITS ---
Operative Note Operative Note Date of Service: 12/03/22 Narrative: Preoperative Diagnosis: Left lumbar radiculopathy Operation: left L5 Laminotomy, Partial facetectomy and foraminotomy with use of microscope Consent Informed Consent was obtained for this operation. I have explained the nature, purpose and benefits of the operation. I have discussed the risks and benefit of the operation including possible complications or adverse events with patient/family. Alternative(s) were discussed with the patient with their relative benefits and risks as well as the consequences of not accepting the operation were included in obtaining consent. Surgeon: OBDULIO PAULA MD, PHD Procedure Assisted By: Adarsh Logan Description of Procedure this patient is suffering from a left L5 lumbar radiculopathy. Injection gave him complete relief. He was offered an L5 laminotomy and foraminotomy. The patient was offered a decompression. The procedure complications were explained. The patient was consented. The patient was brought to the operating room and endotracheally intubated. The patient was turned in prone position on the Karthikeyan frame. Prep and drape was done followed by timeout. Physician assistant general manager provided access. A mid lumbar incision was made followed by release of the paravertebral muscle on the Left side to expose the L5 lamina and facet joint. An intraoperative x-ray was obtained to confirm the correct level. The microscope was brought in. I took over the procedure. The high-speed drill was used to do a L5 laminotomy. #2 Kerrison was used to further remove the lamina towards the L5 foramen. With a nerve hook the medial wall of the [id number] was palpated as well as the beginning of the L5 foramen. The facet joint was partially drilled down after which with a #2 Kerrison a foraminotomy was done. Finally a foraminotomy Kerrison was used to complete the foraminotomy. A long the nerve root could be easily passed a side of adequate decompression. The microscope was removed. Hemostasis was done. Incision was closed in 2 layers. Steri-Strips were used to approximate incision. An OpSite with Tegaderm was used to cover the incision. All sponge needle counts were correct. Patient was extubated and transported in stable is to recovery room. Anesthesia: General Estimated Blood Loss (ml): Minimal Duration of Surgery: Under 60 Minutes Postoperative Plan: Discharge to home
--- NOTE | 2022-12-03 10:40 | P.DS_ITS ---
DS: Providers Provider Date of Service: 12/03/22 Primary care physician: Garcia Vergara MD DS: Summary Time Spent with Patient Time attestation: Total time managing care of this patient today ____ minutes. Discharge coordination time: Less than 30 minutes Quality: Safe Use of Opioids Does Pt have an Active Cancer Diagnosis on the Problem List?: No Quality: Stroke Does the patient have a stroke diagnosis?: No Physical Exam Vital Signs: Vital Signs: Last Vital Signs Temp 98.2 F 12/03/22 07:53 Pulse 78 12/03/22 07:53 Resp 18 12/03/22 07:53 BP 126/78 12/03/22 07:53 Pulse Ox 97 12/03/22 07:53 O2 Del Method Room Air 12/03/22 07:53 BMI result Body Mass Index 24.3 Discharge Plan Discharge Patient Disposition: Home, Self-Care Referrals: Garcia Vergara MD [Primary Care Provider] - 1 Week Discharge Medications: New oxycodone 5 mg tablet 5 mg PO Q6H PRN (Reason: pain) Qty: 20 0RF Rx Instructions: Partial Fill upon patient request. Continued scopolamine base 1 mg over 3 days patch 3 day 1 patch transdermal Q3D PRN (Reason: motion sickness) Qty: 4 0RF clonazepam 1 mg tablet 1 mg PO BID PRN (Reason: anxiety) 90 Days Qty: 180 1RF rosuvastatin 40 mg tablet 40 mg PO DAILY Qty: 90 3RF lisinopril 5 mg tablet 5 mg PO DAILY Qty: 90 2RF ezetimibe 10 mg tablet 10 mg PO DAILY Qty: 90 3RF omeprazole 20 mg capsule,delayed release(DR/EC) 20 mg PO BID Qty: 180 0RF iron PO DAILY cholecalciferol (vitamin D3) 10 mcg (400 unit) capsule 10 mcg PO DAILY multivitamin Tablet 1 tab PO DAILY Held clopidogrel 75 mg tablet 75 mg PO DAILY 90 Days Qty: 90 3RF Hold Instructions: Resume on 12/08/22. Discharge Orders: Discharge Order (Routine); Ordered 12/03/22 Ordered By: Joseph Cates Diet: Advance to usual diet Activity on Discharge: As tolerated Activity Restrictions/Additional Instructions: After your spinal surgery we ask you to observe the following r estrictions/guidelines: Activity: It is normal to feel some discomfort as you increase your activity, but that will improve with time. We ask you avoid heavy lifting or acitivities that cause pain. As a general rule, 8lbs is a safe limit for lifting right after surgery. Walk as much as you feel comfortable but not to exhaustion. You will feel extra tired the first few days after surgery. Stay well hydrated. It is OK to walk up and down stairs You may return to driving when you are off narcotics (such as vicodin, oxycodone, dilaudid, etc), and you are back to normal functional capacity. If you have any concerns please check with office before driving. Return to work is specific to each patient and each surgery, so please speak with your doctor/PA at first follow up. Please bring paperwork such as FMLA at that time if you need it filled out. Medications: We will give you a short supply of narcotics after surgery (usually one weeks worth). If you need more please call the office but do not use more than prescribed. You will need to give our office 48 hours notice if you need narcotics refilled and we do not fill narcotics on weekends or evenings. If you are on a narcotic, it is a good idea to take a stool softener such as colace or senna to avoid constipation If you take blood thinner such as aspirin, Plavix, Coumadin, Effient, Eliquis etc for conditions such as Afib, DVT, Pulmonary embolus, coronary disease, stents etc please speak with your surgeon about specific details as to when you can resume these medications. You can resume NSAIDs on post op day 1 (eg: Motrin, Naproxen, etc). Follow up: Please call the office, , after surgery to arrange a 3 week follow up for wound check. Wound Care: You may remove your dressing on the first day after surgery. You may leave open to air. Please do not remove the steri strips underneath. they will fall off on their own in one week. IT IS NORMAL FOR THE WOUND TO OOZE OR BE BLOODY FOR A FEW DAYS AFTER SURGERY. IF THIS HAPPENS JUST PLACE NEW DRESSING OVER IT TO AVOID STAINING CLOTHES. You may shower on post op day # 1 We ask that you do not let the water soak the wound. If it does get wet, just t owel dry lightly. Please do not scrub your incision or place any type of chemical/ointment on the wound. No tub baths, pools or jacuzzis for one month. If you have any leaking or redness from your wound, or fevers, please call office
[2022-12-03] MEDS: ondansetron HCL 4 MG/2 ML VIAL IVPUSH (11:28)
== END 2022-12-03 13:34 | disposition home or self-care (01) ==
PROVIDERS: PCP Internal Medicine; Visit Provider Neurological Surgery
PROC: (CPT 63047; principal; 2022-12-03 09:10)
DX: M54.40 Lumbago with sciatica, unspecified side (principal); M54.16 Radiculopathy, lumbar region; I10 Essential (primary) hypertension; E78.00 Pure hypercholesterolemia, unspecified; R73.01 Impaired fasting glucose; G47.33 Obstructive sleep apnea (adult) (pediatric); F41.1 Generalized anxiety disorder; Z86.73 Personal history of transient ischemic attack (TIA), and cerebral infarction without residual deficits; Z79.899 Other long term (current) drug therapy; Z88.8 Allergy status to other drugs, medicaments and biological substances; Z87.891 Personal history of nicotine dependence
CPT/HCPCS: 63047; 36415; 80048; 85025; 93005; J0131; J0690; J1100; J1170; J2250; J2405; J2550; J3010

== ENCOUNTER → 2022-12-03 07:23 | Outpatient (BNV) | payer OTHER, SELFPAY | PROVIDERS: PCP Internal Medicine; Visit Provider Neurological Surgery | DX: M54.40 Lumbago with sciatica, unspecified side (principal); Z04.2 Encounter for examination and observation following work accident | CPT/HCPCS: 63030; 63047; 99499 ==

== ENCOUNTER 2022-12-23 14:35 | Outpatient (AMB) | payer OTHER, SELFPAY ==
--- NOTE | 2022-12-23 14:42 | A.SPINEOV_ITS ---
Intake Intake Visit Reasons: 3 week post op Intake Note: Mr. Wright is here today for his 1st post op visit. Free Lance Artist Required: No Allergies eszopiclone [Lunesta] Allergy (Intermediate, Verified 11/19/22 12:01) Hallucinations fluticasone [Flovent HFA] Allergy (Intermediate, Verified 11/19/22 12:01) Unknown prednisone [Prednisone] Allergy (Intermediate, Verified 11/19/22 12:01) SKIN CRAWLED-STEROID INHALER Assessment & Plan Assessment & Plan (1) Lumbar radiculopathy: Code(s): M54.16 - Radiculopathy, lumbar region Plan The patient is a 67-year-old male 3 weeks s/p left L5 laminotomy, partial facetectomy and foraminotomy. He reports that many of his symptoms have resolved post surgery. He feels much better than he did pre-operatively. He states he now has entire days where he has no radicular symptoms, and no pain. He does still at times experience some of the radicular symptoms, but states they are much less than they were prior to surgery. We discussed postop instructions again, and he endorsed that he has been following activity guidelines/restrictions. The tentative plan is to see the patient again in 2-3 weeks to further assess his symptom improvement. It is likely that if he continues to do well and has no new manifestation of symptoms that he will be discharged as a patient. At this time he reports no concerns or complaints, and is very happy with his surgery. Total amount of time spent in this visit was 20 minutes in discussion of symptoms, MRI imaging results and subsequent plan of care. Zechariah Cates MD,PhD [facility] Coding Level of Care Code Tele Est Pt Level 3 (75920) Diagnoses Lumbar radiculopathy M54.16
== END 2022-12-23 15:15 | disposition home or self-care (01) ==
PROVIDERS: PCP Internal Medicine; Visit Provider Neurological Surgery
DX: M54.16 Radiculopathy, lumbar region (principal)
CPT/HCPCS: 99213

== ENCOUNTER → 2022-12-23 14:35 | Outpatient (BNVA) | payer OTHER, SELFPAY | PROVIDERS: PCP Internal Medicine; Visit Provider Neurological Surgery ==

== ENCOUNTER 2023-01-13 08:06 | Outpatient (AMB) | payer OTHER, SELFPAY ==
--- NOTE | 2023-01-13 08:13 | AM.OFFWIN_ITS ---
Intake Vital Signs 01/13/23 08:23 Weight 155 lb BP 112/66 Blood Pressure Location Rt brachial Position Sitting Pulse 78 Pulse Source Pulse Oximeter Pulse Oximetry (%) 98 Oxygen Delivery Method Room Air Intake Visit Reasons: EP ?Rich [phone] Intake Note: Patient here for rash on back that has been present for a few weeks and is now spreading. Patient Tobacco Use Status: Former Tobacco user Quit Date: 1975 Allergies eszopiclone [Lunesta] Allergy (Intermediate, Verified 01/13/23 08:47) Hallucinations fluticasone [Flovent HFA] Allergy (Intermediate, Verified 01/13/23 08:47) Unknown prednisone [Prednisone] Allergy (Intermediate, Verified 01/13/23 08:47) SKIN CRAWLED-STEROID INHALER Medication List - Last Reconciled 01/13/23 by Erwin Andrade MD cholecalciferol (vitamin D3) 10 mcg PO DAILY clonazepam 1 mg PO BID PRN 90 days clopidogrel 75 mg PO DAILY 90 days ezetimibe 10 mg PO DAILY [iron PO DAILY] lisinopril 5 mg PO DAILY multivitamin 1 tab PO DAILY rosuvastatin 40 mg PO DAILY Do you need a note to return to daycare/school/sports/work: No HPI EP ?Rich [phone] HPI Details 67-year-old male presents to the office for a sick visit. Five weeks ago, patient had minimally invasive back surgery. A patch was of applied over the surgical lesion. He has now developed a rash in that area which is mildly itchy. It is progressively getting worse. [facility] Medical History Anxiety BPH (benign prostatic hyperplasia) Cervical spinal stenosis GERD (gastroesophageal reflux disease) History of CVA (cerebrovascular accident) NOME (hard of hearing) Hypercholesterolemia Hypercholesterolemia with endogenous hyperglyceridemia Hypertension Impaired fasting blood sugar Obstructive sleep apnea Pancreatitis PONV (postoperative nausea and vomiting) Surgical History History of arthroscopy of right knee History of hemorrhoidectomy History of inguinal hernia repair History of vasectomy Hx of colonoscopy Family History Father Medical history unknown Mother Diabetes CVD (cardiovascular disease) CHF (congestive heart failure) Gout Arthritis Paternal Uncle Colon cancer Daughter HPV (human papilloma virus) infection Son In good health Sister Breast cancer in situ Social History Housing: House Are you a primary foster care case manager to a significant other at home: No Do you presently have visiting nurse or other home services: No Alcohol intake: current Patient Tobacco Use Status: Former Tobacco user Quit Date: 1975 Tobacco use type: Cigarette Years Smoked: 3 months of smoking 1975 e-Cigarette/Vaping Use: Never Used Second Hand Smoke Exposure: No Advance Directives Date on File: 06/28/17 Current occupational status: employed Cognitive needs: No Hearing needs: No Vision needs: No Physical Exam Vital Signs: Last Vital Signs Pulse 78 01/13/23 08:23 BP 112/66 01/13/23 08:23 Pulse Ox 98 01/13/23 08:23 Oxygen Delivery Method Room Air 01/13/23 08:23 Skin Other: Erythematous papular lesion on the lower back around the surgical scar area. No vesicles or pustules. Assessment & Plan Assessment & Plan (1) Rash: Code(s): R21 - Rash and other nonspecific skin eruption Plan: Triamcinolone cream prescribed. Patient was reassured that this rash is not shingles. Coding Level of Care Code Est Pt Level 3 (97049) Diagnoses Rash R21
[2023-01-13 08:23] VITALS: BP 112/66; PULSE 78; O2SAT 98
== END 2023-01-13 08:59 | disposition home or self-care (01) ==
PROVIDERS: PCP Internal Medicine; Visit Provider Internal Medicine
DX: R21 Rash and other nonspecific skin eruption (principal)
CPT/HCPCS: 99213

== ENCOUNTER 2023-01-19 12:43 | Outpatient (AMB) | payer OTHER, SELFPAY ==
--- NOTE | 2023-01-19 12:55 | HO.SPINEOV ---
Intake Intake Visit Reasons: 2nd post op Intake Note: Mr. Wright is here today for his 2nd post-op visit. 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 He has been overall doing quite well, slowly increasing his activities. His wound is healed up nicely. He did have a back rash which he thinks was from the Tegaderm and recently got some topical steroid for that. I took a look at it seems to be small blotchy areas but no signs of active infection or irritation. It is diffuse all over his back so I wonder if there is a component of humidity or sweat meds contributing to it. We discussed activity guidelines, restrictions and expectations after lumbar foraminotomy. At this point since he is doing so well we will see him back on an as-needed basis. Adarsh Cates MD, PhD [facility] Coding Level of Care Code Global (94676) Diagnoses Lumbar radiculopathy M54.16
== END 2023-01-19 13:09 | disposition home or self-care (01) ==
PROVIDERS: PCP Internal Medicine; Visit Provider Physician Assistant
DX: M54.16 Radiculopathy, lumbar region (principal)
CPT/HCPCS: 99024

== ENCOUNTER → 2023-01-19 12:43 | Outpatient (BNVA) | payer OTHER, SELFPAY | PROVIDERS: PCP Internal Medicine; Visit Provider Physician Assistant ==

== ENCOUNTER 2023-04-07 08:17 | Outpatient (REF) | payer MEDICARE, SELFPAY ==
[2023-04-07 11:14] LABS: MANUAL DIFF FLAG NO
[2023-04-07 11:53] LABS: Alanine Aminotransferase 37 U/L (0-40); Albumin Level 4.4 g/dL (3.5-5.0); Alkaline Phosphatase 63 U/L (39-117); Anion Gap 12 (12-20); Aspartate Amino Transferase 36 U/L (5-37); Bilirubin Total 0.8 mg/dL (0.0-1.0); Blood Urea Nitrogen 16 mg/dL (9-16); Calcium 9.9 mg/dL (8.4-10.2); Carbon Dioxide 28 mmol/L (22-29); Chloride 107 mmol/L (96-108); Cholesterol 171 mg/dL (<200); Estimated Glomerular Filt Rate > 60; Glucose Random 99 mg/dL (60-115); HDL Cholesterol 83 mg/dL (>40); Iron 132 mcg/dL (45-160); LDL Cholesterol Calculated 76 mg/dL (<100); Percent Iron Saturation 50 % (15-50); Potassium 5.1 mmol/L (3.3-5.1); Sodium 142 mmol/L (135-145); Total Iron Binding Capacity 265 mcg/dL (228-428); Total Protein 6.9 g/dL (6.5-8.0); Triglycerides 63 mg/dL (<150); Unsaturated Iron Binding 133 ug/dL
[2023-04-07 12:02] LABS: Basophils Absolute Auto 0.1 X10*3/uL (0.0-0.2); Basophils Percent Auto 1.4 % (0-2); Eosinophils Absolute Auto 0.2 X10*3/uL (0.0-0.4); Eosinophils Percent Auto 5.3 % (0-4); Hematocrit 43.3 % (42.0-52.0); Hemoglobin 14.4 g/dl (14.0-18.0); Imm Gran Abs Auto 0.03 X10*3/uL (0.00-0.03); Imm Gran Pct Auto 0.7 % (0.0-0.4); Immature Retic Fraction 11.2 % (2.3-13.4); Lymphocytes Absolute Auto 1.2 X10*3/uL (1.2-4.9); Lymphocytes Percent Auto 27.8 % (20-40); Mean Corpuscular HGB Conc 33.3 g/dl (31.0-36.0); Mean Corpuscular Hemoglobin 31.2 pg (27.0-33.0); Mean Corpuscular Volume 93.9 fL (80.0-98.0); Mean Platelet Volume 10.4 fL (9.4-12.4); Monocytes Absolute Auto 0.6 X10*3/uL (0.1-1.2); Monocytes Percent Auto 12.9 % (2-11); Neutrophils Absolute Auto 2.3 x10*3/uL (2.0-8.3); Neutrophils Percent Auto 51.9 % (45-73); Platelet Count 208 X10*3/uL (160-400); Red Blood Count 4.61 X10*6/uL (4.60-5.80); Red Cell Distribution Width 12.6 % (11.0-16.0); Retic HGB Equivalent 37.2 pg (30.0-35.0); Reticulocyte Percent 1.7 % (0.5-1.8); Reticulocytes Absolute 0.076 X10*6/uL (0.026-0.095); White Blood Count 4.4 X10*3/uL (4.8-10.8)
[2023-04-07 12:12] LABS: Ferritin 212 ng/mL (20-250); Free T4 (Free Thyroxine) 0.86 ng/dL (0.71-1.85); Thyroid Stimulating Hormone 1.62 uIU/mL (0.32-4.0)
[2023-04-07 12:13] LABS: Estimated Average Glucose 111 mg/dL; Folate 14.4 ng/mL (> or = 4.0); Hemoglobin A1c % 5.5 % (<6.0); Prostate Specific Antigen Scr 2.16 ng/mL (<0.05-4.0); Vitamin B12 483 pg/mL (200-900)
== END 2023-04-07 08:18 | disposition home or self-care (01) ==
LOC: HO.HMGCLDS 08:17
PROVIDERS: PCP Internal Medicine; Visit Provider Internal Medicine
DX: Z12.5 Encounter for screening for malignant neoplasm of prostate (principal); D64.9 Anemia, unspecified; K76.0 Fatty (change of) liver, not elsewhere classified; R73.01 Impaired fasting glucose; E78.00 Pure hypercholesterolemia, unspecified
CPT/HCPCS: 36415; 80053; 80061; 82607; 82728; 82746; 83036; 83540; 84153; 84439; 84443; 85025; 85045

== ENCOUNTER 2023-04-23 10:02 | Outpatient (AMB) | payer MEDICARE, SELFPAY ==
--- NOTE | 2023-04-23 10:17 | MHC.PC.OV ---
Vital Signs 04/23/23 10:43 Height 5 ft 7 in Weight 164 lb 0.2 oz BMI 25.7 BP 118/74 Blood Pressure Location Lt brachial Position Sitting Pulse 77 Pulse Source Pulse Oximeter Pulse Oximetry (%) 97 Oxygen Delivery Method Room Air Intake Visit Reasons: Annual Exam Allergies eszopiclone [Lunesta] Allergy (Intermediate, Verified 01/13/23 08:47) Hallucinations fluticasone [Flovent HFA] Allergy (Intermediate, Verified 01/13/23 08:47) Unknown prednisone [Prednisone] Allergy (Intermediate, Verified 01/13/23 08:47) SKIN CRAWLED-STEROID INHALER omprazole Adverse Reaction (Intermediate, Uncoded 04/23/23 11:23) bloating Medication List - Last Reconciled 04/23/23 by Garcia Vergara MD cholecalciferol (vitamin D3) 10 mcg PO DAILY clonazepam 1 mg PO BID PRN 90 days clopidogrel 75 mg PO DAILY 90 days [CPAP DreamWear nasal mask of medium size with pressure of 7 cm humidified air As directed] ezetimibe 10 mg PO DAILY [iron PO DAILY] lisinopril 5 mg PO DAILY multivitamin 1 tab PO DAILY rosuvastatin 40 mg PO DAILY triamcinolone acetonide 0.025% 1 appl topical BID Tobacco use date assessed: 04/23/23 Fall risk assessment: No Falls in past year Last assessed Fall Risk: 04/23/23 Dental Screening Dental Screen Date: 04/23/23 Did you have a dental visit in the last 12 months?: Yes Did you have a dental problem in the last 6 months where you did not have access to dental care?: No Was dental information given to patient?: Patient has dentist HPI Annual Exam HPI Details 67-year-old male with a history of CVA GERD hypertension BPH generalized anxiety disorder hypercholesterolemia and impaired glucose tolerance last seen in March 2022 patient is here for physical exam. Colonoscopy July 2018. received vaccination for flu and COVID. MRI in August showed L5-S1 degenerative changes severe right and moderate left foraminal stenosis with compression L5 nerve root right L4-L5 similar stenosis moderate bilateral mass effect on exiting L4 L3-L4 moderate left foraminal stenosis mass effect L3 left, L3-L2 annual bulge contact on the L2 nerve root Patient had lumbar radiculopathy and [facility] had left L5 laminotomy partial facetectomy and foraminotomy November 2022. Patient had a CT scan done in March 2022 also with no significant active paranasal sinus disease with mild mucoperiosteal thickening in the left maxillary and right ethmoid sinuses deviated septum. stating still have problems but better.n retired already!!!. January passing out state dehydrated,- had diarrhea. omeprazole use - bloated - stopped better PFSH Medical History (Updated 04/23/23 @ 11:13 by Garcia Vergara MD) [place] (hard of hearing) PONV (postoperative nausea and vomiting) Hypercholesterolemia Impaired fasting blood sugar Cervical spinal stenosis Pancreatitis History of CVA (cerebrovascular accident) GERD (gastroesophageal reflux disease) BPH (benign prostatic hyperplasia) Hypercholesterolemia with endogenous hyperglyceridemia Hypertension Anxiety Obstructive sleep apnea Surgical History Hx of colonoscopy History of hemorrhoidectomy History of vasectomy History of arthroscopy of right knee History of inguinal hernia repair Family History Father Medical history unknown Mother Diabetes CVD (cardiovascular disease) CHF (congestive heart failure) Gout Arthritis Paternal Uncle Colon cancer Daughter HPV (human papilloma virus) infection Son In good health Sister Breast cancer in situ Social History (Updated 04/23/23 @ 11:21 by Garcia Vergara MD) Housing: House Are you a primary health care analyst to a significant other at home: No Do you presently have visiting nurse or other home services: No Alcohol intake: current Comment: 2 beers Qd Patient Tobacco Use Status: Former Tobacco user Quit Date: 1975 Tobacco use type: Cigarette Years Smoked: 3 months of smoking 1975 e-Cigarette/Vaping Use: Never Used Second Hand Smoke Exposure: No Advance Directives Date on File: 06/28/17 Current occupational status: employed Cognitive needs: No Hearing needs: No Vision needs: No Questionnaire PHQ-9 Over the last 2 weeks, how often have you been bothered by any of the following problems? 1. Little interest or pleasure in doing things: not at all 2. Feeling down, depressed, or hopeless: not at all 3. Trouble falling or staying asleep, or sleeping too much: not at all 4. Feeling tired or having little energy: not at all 5. Poor appetite or overeating: not at all 6. Feeling bad about yourself - or that you are a failure or have let yourself or your family down: not at all 7. Trouble concentrating on things, such as reading the newspaper or watching television: not at all 8. Moving or speaking so slowly that other people could have noticed. Or the opposite - being so fidgety or restless that you have been moving around a lot more than usual: not at all 9. Thoughts that you would be better off or of hurting yourself in some way: not at all Total score: 0 Depression Screening Interpretation: Negative Depression Screening Done: Yes Source: Developed by Drs. Eliseo Echols, Eliza Nicholas, Arie Brennan and colleagues, with an educational henok from [employer]. Thrive Questionnaire Date Thrive assessed: 04/23/23 I am a: Patient What is your living situation today?: I have a steady place to live Within the past 12 months, did the food you bought not last and you didn't have the money to get more?: Never true Within the past 12 months, did you worry whether your food would run out before you got money to buy more?: Never true Do you have trouble paying for medicines?: No Do you have trouble getting transportation to medical appointments?: No Do you have trouble paying your heating and electricity bill?: No Do you have trouble taking care of your child, family member or friend?: No Do you have trouble with day-to-day activities such as bathing, preparing meals, shopping, managing finances, etc.?: No Are you currently unemployed and looking for a job?: No AUDIT C Alcohol Use Questionnaire (AUDIT-C) 1. How often do you have a drink containing alcohol?: 4 or more times a week 2. How many drinks containing alcohol do you have on a typical day when you are drinking?: 1 or 2 3. How often do you have six or more drinks on one occasion?: Never Total Score: 4 LOREE-7 AMB Questionnaire LOREE-7 Date LOREE - 7 assessed: 04/23/23 Feeling nervous, anxious, or on edge: 0 = Not at all Not being able to stop or control worryin = Not at all Worrying too much about different things: 0 = Not at all Trouble relaxin = Not at all Being so restless that it is hard to sit still: 0 = Not at all Becoming easily annoyed or irritable: 0 = Not at all Feeling afraid as if something awful might happen: 0 = Not at all Total LOREE-7 score (0-4 normal; 5-9 mild; 10-14 moderate; 15-21 severe): 0 Source: Developed by Drs. Eliseo Echols, Eliza Nicholas, Arie Brennan and colleagues, with an educational henok from [employer]. Review of Systems Const Denies poor appetite and Denies weakness Eyes Denies no additional complaints ENT Reports Normal hearing present, Denies dizziness, Denies nasal congestion, Denies tinnitus and Denies sore throat Card Denies chest pain, Denies syncope, Denies rapid heart rate and Denies dyspnea Resp Denies cough and Denies dyspnea GI Denies change in stool character, Reports constipation, Denies diarrhea, Denies nausea and Denies vomiting Denies dysuria and Denies urinary frequency Neuro Reports Normal hearing present, Denies confusion, Denies dizziness, Denies syncope and Denies weakness Psych Denies confusion Physical exam (Primary Care) Vital Signs: Last Vital Signs Pulse 77 04/23/23 10:43 BP 118/74 04/23/23 10:43 Pulse Ox 97 04/23/23 10:43 Oxygen Delivery Method Room Air 04/23/23 10:43 BMI result Body Mass Index 25.7 Tobacco/Smoking Status: Tobacco use Status Tobacco use date assessed 04/23/23 04/23/23 10:47 Patient Tobacco Use Status Former Tobacco user 04/23/23 10:17 Tobacco use type Cigarette 04/23/23 10:17 e-Cigarette/Vaping Use Never Used 04/23/23 10:17 PHQ-9: PHQ-9 Score PHQ-9: Total score 0 04/23/23 10:48 Depression Screening Interpretation: Negative Thrive Assessment: Date of Thrive Assessment Date Thrive assessed 04/23/23 04/23/23 10:47 Const General: No confusion Orientation/consciousness: No confusion HENMT Head: Yes normocephalic Ears: external ears normal and TM's normal bilaterally Face and sinus: Yes normal facial exam Mouth: moist mucous membranes Throat: Yes tonsils normal Eyes Conjunctivae: conjunctivae normal Pupils: Equal, round and reactive pupils present and Pupil accommodation reflex normal Direct Ophthalmoscopy: normal light reflex Neck Neck: No lymphadenopathy Thyroid: Thyroid normal Chest Chest palpation & inspection: normal inspection of the chest Resp Effort & Inspection: normal respiratory effort and no audible wheezes Auscultation: clear to auscultation bilaterally, no crackles, no wheezes and lung sounds not diminished Cardio Rate: regular rate Rhythm: regular rhythm Peripheral pulses: radial pulses present and dorsalis pedis present GI Other: guaiac negative prostate mild enlarged Palpation (GI): no masses Auscultation: normal bowel sounds and normoactive bowel sounds Male General Exam: Yes normal external exam Skin General skin exam: no rashes or lesions noted Rashes: no rashes Neuro General: No confusion Cranial nerves: Yes Equal, round and reactive pupils present and Yes Normal hearing present Cognition (Neuro): normal cognition Gait exam (Neuro): Normal gait present Motor exam (neuro): 5/5 motor strength present throughout Deep tendon reflexes (DTR's): Right brachioradialis reflex intensity grade: 2+, Left brachioradialis reflex intensity grade: 2+, Right patellar reflex intensity grade: 2+ and Left patellar reflex intensity grade: 2+ Extrem General: No edema Assessment and Plan Assessment & Plan (1) Annual physical exam: Code(s): Z00.00 - Encounter for general adult medical examination without abnormal findings (2) Obstructive sleep apnea: Comment: Two thousand seventeen Code(s): G47.33 - Obstructive sleep apnea (adult) (pediatric) Plan: Continue with CPAP more than 4 hours a night and benefits from this (3) Hypertension: Comment: Echo October 2019 EF 60-65 Code(s): I10 - Essential (primary) hypertension Qualifiers: Hypertension type: essential hypertension Qualified Code(s): I10 - Essential (primary) hypertension Plan: Continue with blood pressure medication. Decrease salt intake and exercise patient on lisinopril 5 mg once a day (4) Hypercholesterolemia: Code(s): E78.00 - Pure hypercholesterolemia, unspecified Plan: Avoid fried foods, chicken skin, eggs, butter margarine, pastries and meat. Be it pork or beef they have a lot of cholesterol LDL goal of less than 70 and triglyceride of less than 150 patient on rosuvastatin 40 mg once a day and Zetia (5) Impaired fasting blood sugar: Code(s): R73.01 - Impaired fasting glucose Plan: Decrease the amount of carbohydrate intake, pasta, bread, rice and potatoes are all sugar and that is aside from all the sweet stuff, remember that fruits are good but they are Sweet also. (6) History of CVA (cerebrovascular accident): Comment: [facility]stem October 2019 Code(s): Z86.73 - Personal history of transient ischemic attack (TIA), and cerebral infarction without residual deficits Plan: Control the cholesterol, weight, blood pressure continue on clopidogrel (7) GERD (gastroesophageal reflux disease): Code(s): K21.9 - Gastro-esophageal reflux disease without esophagitis Qualifiers: Esophagitis presence: without esophagitis Qualified Code(s): K21.9 - Gastro-esophageal reflux disease without esophagitis Plan: Avoid the foods that causes that usually spicy foods, tomato products, juices, coffee, soda and foods that your sensitive to. After eating do not lie down, allow 3-4 hours before in lie down. And keep the head of bed above 30 degrees to avoid the acid from going up. (8) BPH (benign prostatic hyperplasia): Code(s): N40.0 - Benign prostatic hyperplasia without lower urinary tract symptoms Qualifiers: Lower urinary tract symptom presence: symptoms present Lower urinary tract symptom detail: weak urinary stream Qualified Code(s): N40.1 - Benign prostatic hyperplasia with lower urinary tract symptoms; R39.12 - Poor urinary stream Plan: Stable (9) Generalized anxiety disorder: Code(s): F41.1 - Generalized anxiety disorder Plan: Continue with medication as needed (10) Lumbar radiculopathy: Comment: left L5 laminotomy partial facetectomy and foraminotomy November 2022. Patient see [facility] Code(s): M54.16 - Radiculopathy, lumbar region Plan: Continue to follow-up with the neurosurgeon Coding Level of Care Code Est Pt Prev Care >65y(16725) Diagnoses Annual physical exam Z00.00 Obstructive sleep apnea G47.33 Essential hypertension I10 Hypertension type: essential hypertension Hypercholesterolemia E78.00 Impaired fasting blood sugar R73.01 History of CVA (cerebrovascular accident) Z86.73 Gastroesophageal reflux disease without esophagitis K21.9 Esophagitis presence: without esophagitis Benign prostatic hyperplasia with weak urinary stream N40.1; R39.12 Lower urinary tract symptom presence: symptoms present Lower urinary tract symptom detail: weak urinary stream Generalized anxiety disorder F41.1 Lumbar radiculopathy M54.16
[2023-04-23 10:43] VITALS: BP 118/74; PULSE 77; O2SAT 97; BMI 25.7
== END 2023-04-23 11:38 | disposition home or self-care (01) ==
PROVIDERS: Visit Provider Internal Medicine
DX: Z00.00 Encounter for general adult medical examination without abnormal findings (principal); G47.33 Obstructive sleep apnea (adult) (pediatric); I10 Essential (primary) hypertension; E78.00 Pure hypercholesterolemia, unspecified; R73.01 Impaired fasting glucose; Z86.73 Personal history of transient ischemic attack (TIA), and cerebral infarction without residual deficits; K21.9 Gastro-esophageal reflux disease without esophagitis; N40.1 Benign prostatic hyperplasia with lower urinary tract symptoms; R39.12 Poor urinary stream; F41.1 Generalized anxiety disorder; M54.16 Radiculopathy, lumbar region
CPT/HCPCS: 99397

== ENCOUNTER 2024-04-14 07:32 | Outpatient (REF) | payer MEDICARE, SELFPAY ==
[2024-04-14 07:50] LABS: MANUAL DIFF FLAG NO
[2024-04-14 08:11] LABS: Basophils Percent Auto 0.8 % (0-2); Eosinophils Absolute Auto 0.2 X10*3/uL (0.0-0.4); Eosinophils Percent Auto 4.2 % (0-4); Hematocrit 42.1 % (42.0-52.0); Hemoglobin 14.3 g/dl (14.0-18.0); Imm Gran Abs Auto 0.02 X10*3/uL (0.00-0.03); Imm Gran Pct Auto 0.4 % (0.0-0.4); Immature Retic Fraction 11.7 % (2.3-13.4); Lymphocytes Absolute Auto 1.4 X10*3/uL (1.2-4.9); Lymphocytes Percent Auto 28.2 % (20-40); Mean Corpuscular Volume 91.1 fL (80.0-98.0); Mean Platelet Volume 9.9 fL (9.4-12.4); Monocytes Absolute Auto 0.6 X10*3/uL (0.1-1.2); Monocytes Percent Auto 12.8 % (2-11); Neutrophils Absolute Auto 2.6 x10*3/uL (2.0-8.3); Neutrophils Percent Auto 53.6 % (45-73); Platelet Count 191 X10*3/uL (160-400); Red Blood Count 4.62 X10*6/uL (4.60-5.80); Red Cell Distribution Width 12.8 % (11.0-16.0); Retic HGB Equivalent 35.3 pg (30.0-35.0); Reticulocyte Percent 1.5 % (0.5-1.8); White Blood Count 4.8 X10*3/uL (4.8-10.8)
[2024-04-14 08:17] LABS: Estimated Average Glucose 126 mg/dL; Hemoglobin A1C 154.4465 umol/L; Total Hemoglobin (HGBA1C) 3633.6315 umol/L
[2024-04-14 08:34] LABS: Alanine Aminotransferase 38 U/L (0-40); Albumin Level 4.3 g/dL (3.5-5.0); Alkaline Phosphatase 63 U/L (39-117); Anion Gap 11 (12-20); Aspartate Amino Transferase 34 U/L (5-37); Bilirubin Total 0.7 mg/dL (0.0-1.0); Blood Urea Nitrogen 17 mg/dL (9-16); Calcium 9.4 mg/dL (8.4-10.2); Carbon Dioxide 29 mmol/L (22-29); Chloride 108 mmol/L (96-108); Cholesterol 162 mg/dL (<200); Estimated Glomerular Filt Rate > 60; Glucose Random 115 mg/dL (60-115); HDL Cholesterol 67 mg/dL (>40); Iron 87 mcg/dL (45-160); LDL Cholesterol Calculated 84 mg/dL (<100); Percent Iron Saturation 33 % (15-50); Potassium 4.9 mmol/L (3.3-5.1); Sodium 143 mmol/L (135-145); Total Iron Binding Capacity 260 mcg/dL (228-428); Total Protein 6.6 g/dL (6.5-8.0); Triglycerides 58 mg/dL (<150); Unsaturated Iron Binding 173 ug/dL
[2024-04-14 08:50] LABS: Ferritin 204 ng/mL (20-250); Free T4 (Free Thyroxine) 0.92 ng/dL (0.71-1.85); Thyroid Stimulating Hormone 1.59 uIU/mL (0.32-4.0)
[2024-04-14 08:56] LABS: Folate 17.6 ng/mL (> or = 4.0); Prostate Specific Antigen Scr 2.61 ng/mL (<0.05-4.0); Vitamin B12 567 pg/mL (200-900)
== END 2024-04-14 07:33 | disposition home or self-care (01) ==
LOC: HO.LAB 07:32
PROVIDERS: PCP Internal Medicine; Visit Provider Internal Medicine
DX: R73.01 Impaired fasting glucose (principal); E78.00 Pure hypercholesterolemia, unspecified; Z12.5 Encounter for screening for malignant neoplasm of prostate
CPT/HCPCS: 36415; 80053; 80061; 82607; 82728; 82746; 83036; 83540; 84153; 84439; 84443; 85025; 85045

== ENCOUNTER 2024-04-26 08:20 | Outpatient (AMB) | payer MEDICARE, SELFPAY ==
--- NOTE | 2024-04-26 08:23 | MHC.PC.OV ---
Vital Signs 04/26/24 08:24 Height 5 ft 7 in Weight 176 lb BMI 27.6 BP 124/76 Blood Pressure Location Lt brachial Position Sitting Pulse 82 Pulse Source Pulse Oximeter Pulse Oximetry (%) 97 Oxygen Delivery Method Room Air Intake Visit Reasons: pe Allergies eszopiclone [Lunesta] Allergy (Intermediate, Verified 04/26/24 08:24) Hallucinations fluticasone [Flovent HFA] Allergy (Intermediate, Verified 04/26/24 08:24) Unknown prednisone [Prednisone] Allergy (Intermediate, Verified 04/26/24 08:24) SKIN CRAWLED-STEROID INHALER omprazole Adverse Reaction (Intermediate, Uncoded 04/26/24 08:24) bloating Medication List - Last Reconciled 04/26/24 by Garcia Vergara MD cholecalciferol (vitamin D3) 10 mcg PO DAILY clonazepam 1 mg PO BID PRN 90 days clopidogrel 75 mg PO DAILY 90 days [CPAP DreamWear nasal mask of medium size with pressure of 7 cm humidified air As directed] ezetimibe 10 mg PO DAILY inulin (Fiber Gummies) grams PO [iron PO DAILY] lisinopril 5 mg PO DAILY multivitamin 1 tab PO DAILY rosuvastatin 40 mg PO DAILY triamcinolone acetonide 0.025% 1 appl topical BID Tobacco use date assessed: 04/26/24 Fall risk assessment: 1 Fall in past year Last assessed Fall Risk: 04/26/24 Dental Screening Dental Screen Date: 04/26/24 Did you have a dental visit in the last 12 months?: Yes Did you have a dental problem in the last 6 months where you did not have access to dental care?: No Was dental information given to patient?: Patient has dentist HPI pe HPI Details The patient is a 68-year-old male presenting for a comprehensive physical examination. He has a pertinent history of multiple chronic conditions including obstructive sleep apnea, hypertension, hypercholesterolemia, and impaired glucose tolerance. His past medical history also includes a cerebrovascular accident, GERD, BPH, generalized anxiety disorder, and lumbar radiculopathy. He reports having undergone blood work in March 2024 with a hemoglobin A1c of 6.0 and LDL of 84. He mentions that he has ceased omeprazole due to adverse effects on his appetite and digestion, resulting in notable weight gain. Recently, the patient has been experiencing shoulder discomfort due to a bone spur attributable to arthritis, confirmed via MRI. He has completed a physical therapy regimen and anticipates a surgical consultation. Other medical concerns include episodes of tinnitus and occasional heartburn exacerbated by certain dietary choices. He remains vigilant about his glucose levels, as recent fasting blood sugar results have increased since the previous year.L shoulder pain MRI bone spur seen MARCELLUS, had PT PFSH Medical History (Updated 04/26/24 @ 17:52 by Garcia Vergara MD) [place] (hard of hearing) PONV (postoperative nausea and vomiting) Hypercholesterolemia Impaired fasting blood sugar Cervical spinal stenosis Pancreatitis History of CVA (cerebrovascular accident) GERD (gastroesophageal reflux disease) BPH (benign prostatic hyperplasia) Hypercholesterolemia with endogenous hyperglyceridemia Hypertension Anxiety Obstructive sleep apnea Surgical History Hx of colonoscopy History of hemorrhoidectomy History of vasectomy History of arthroscopy of right knee History of inguinal hernia repair Family History (Updated 04/26/24 @ 08:25 by Sailaja Mandujano CMA) Father Medical history unknown Mother Diabetes CVD (cardiovascular disease) CHF (congestive heart failure) Gout Arthritis Paternal Uncle Colon cancer Daughter HPV (human papilloma virus) infection Son In good health Sister Breast cancer in situ Social History (Updated 04/23/23 @ 11:21 by Garcia Vergara MD) Housing: House Are you a primary palliative care coordinator to a significant other at home: No Do you presently have visiting nurse or other home services: No Alcohol intake: current Comment: 2 beers Qd Patient Tobacco Use Status: Former Tobacco user Tobacco use type: Cigarette Years Smoked: 3 months of smoking 1976 e-Cigarette/Vaping Use: Never Used Second Hand Smoke Exposure: No Advance Directives Date on File: 06/28/17 Current occupational status: employed Cognitive needs: No Hearing needs: Yes Vision needs: Yes Questionnaire PHQ-9 Over the last 2 weeks, how often have you been bothered by any of the following problems? 1. Little interest or pleasure in doing things: not at all 2. Feeling down, depressed, or hopeless: not at all 3. Trouble falling or staying asleep, or sleeping too much: not at all 4. Feeling tired or having little energy: not at all 5. Poor appetite or overeating: not at all 6. Feeling bad about yourself - or that you are a failure or have let yourself or your family down: not at all 7. Trouble concentrating on things, such as reading the newspaper or watching television: not at all 8. Moving or speaking so slowly that other people could have noticed. Or the opposite - being so fidgety or restless that you have been moving around a lot more than usual: not at all 9. Thoughts that you would be better off or of hurting yourself in some way: not at all Total score: 0 Source: Developed by Drs. Eliseo Echols, Eliza Nicholas, Arie Brennan and colleagues, with an educational henok from [employer]. Thrive Questionnaire Date Thrive assessed: 04/26/24 I am a: Patient What is your living situation today?: I have a steady place to live Within the past 12 months, did the food you bought not last and you didn't have the money to get more?: Never true Within the past 12 months, did you worry whether your food would run out before you got money to buy more?: Often true Do you have trouble paying for medicines?: No Do you have trouble getting transportation to medical appointments?: No Do you have trouble paying your heating and electricity bill?: No Do you have trouble taking care of your child, family member or friend?: No Do you have trouble with day-to-day activities such as bathing, preparing meals, shopping, managing finances, etc.?: No Are you currently unemployed and looking for a job?: No Are you interested in more education?: No Please select the resources that you would like help with: None Currently or been in a relationship where the following occur: No concerns reported THRIVE Score: 1 AUDIT C Alcohol Use Questionnaire (AUDIT-C) 1. How often do you have a drink containing alcohol?: 4 or more times a week 2. How many drinks containing alcohol do you have on a typical day when you are drinking?: 1 or 2 3. How often do you have six or more drinks on one occasion?: Never Total Score: 4 LOREE-7 AMB Questionnaire LOREE-7 Date LOREE - 7 assessed: 04/26/24 Feeling nervous, anxious, or on edge: 0 = Not at all Not being able to stop or control worryin = Not at all Worrying too much about different things: 1 = Several days Trouble relaxin = Not at all Being so restless that it is hard to sit still: 1 = Several days Becoming easily annoyed or irritable: 0 = Not at all Feeling afraid as if something awful might happen: 0 = Not at all Total LOREE-7 score (0-4 normal; 5-9 mild; 10-14 moderate; 15-21 severe): 2 Source: Developed by Drs. Eliseo Echols, Eliza Nicholas, Arie Brennan and colleagues, with an educational henok from [employer]. Physical exam (Primary Care) Vital Signs: Last Vital Signs Pulse 82 04/26/24 08:24 BP 124/76 04/26/24 08:24 Pulse Ox 97 04/26/24 08:24 Oxygen Delivery Method Room Air 04/26/24 08:24 BMI result Body Mass Index 27.6 Tobacco/Smoking Status: Tobacco use Status Tobacco use date assessed 04/26/24 04/26/24 08:28 Patient Tobacco Use Status Former Tobacco user 04/26/24 08:28 Tobacco use type Cigarette 04/26/24 08:28 e-Cigarette/Vaping Use Never Used 04/26/24 08:28 PHQ-9: PHQ-9 Score PHQ-9: Total score 0 04/26/24 08:45 Thrive Assessment: Date of Thrive Assessment Date Thrive assessed 04/26/24 04/26/24 08:28 Currently or been in a relationship where the following occur: No concerns reported Coding Level of Care Code Est Pt Level 4 (58657) Diagnoses Obstructive sleep apnea G47.33 Essential hypertension I10 Hypertension type: essential hypertension Benign prostatic hyperplasia with weak urinary stream N40.1; R39.12 Lower urinary tract symptom detail: weak urinary stream Lower urinary tract symptom presence: symptoms present Gastroesophageal reflux disease without esophagitis K21.9 Esophagitis presence: without esophagitis History of CVA (cerebrovascular accident) Z86.73 Impaired fasting blood sugar R73.01 Hypercholesterolemia E78.00 Annual physical exam Z00.00 Acute pain of left shoulder M25.512 Chronicity: acute Assessment & Plan Assessment & Plan (1) Obstructive sleep apnea: Comment: Two thousand seventeen Code(s): G47.33 - Obstructive sleep apnea (adult) (pediatric) Category: Medical Plan: continue to used the CPAP > 4 hours and benefits for this (2) Hypertension: Comment: Echo October 2019 EF 60-65 Code(s): I10 - Essential (primary) hypertension Category: Medical Qualifiers: Hypertension type: essential hypertension Qualified Code(s): I10 - Essential (primary) hypertension (3) BPH (benign prostatic hyperplasia): Code(s): N40.0 - Benign prostatic hyperplasia without lower urinary tract symptoms Category: Medical Qualifiers: Lower urinary tract symptom detail: weak urinary stream Lower urinary tract symptom presence: symptoms present Qualified Code(s): N40.1 - Benign prostatic hyperplasia with lower urinary tract symptoms; R39.12 - Poor urinary stream (4) GERD (gastroesophageal reflux disease): Code(s): K21.9 - Gastro-esophageal reflux disease without esophagitis Category: Medical Qualifiers: Esophagitis presence: without esophagitis Qualified Code(s): K21.9 - Gastro-esophageal reflux disease without esophagitis (5) History of CVA (cerebrovascular accident): Comment: Brainstem October 2019 Code(s): Z86.73 - Personal history of transient ischemic attack (TIA), and cerebral infarction without residual deficits Category: Medical (6) Impaired fasting blood sugar: Code(s): R73.01 - Impaired fasting glucose Category: Medical Plan: Blood work requested in 6 months (7) Hypercholesterolemia: Code(s): E78.00 - Pure hypercholesterolemia, unspecified Category: Medical Plan: With cholesterol elevation patient is advised to retest in 6 months (8) Annual physical exam: Code(s): Z00.00 - Encounter for general adult medical examination without abnormal findings Category: Medical (9) Left shoulder pain: Code(s): M25.512 - Pain in left shoulder Category: Medical Qualifiers: Chronicity: acute Qualified Code(s): M25.512 - Pain in left shoulder Plan 1. Obstructive Sleep Apnea: Continue regular use of CPAP device. useds for > 4 hours a night and benefits the patient 2. Hypertension: Continue with blood pressure medication. Decrease salt intake and exerciseMaintain current antihypertensive medications lisinopril 5 mg daily. 3. Hypercholesterolemia:Avoid fried foods, chicken skin, eggs, butter margarine, pastries and meat. Be it pork or beef they have a lot of cholesterol Continue current medications, rosuvastatin 40 mg and ezetimibe 10 mg daily. Aim for LDL target below 70. 4. Impaired Glucose Tolerance: Decrease the amount of carbohydrate intake, pasta, bread, rice and potatoes are all sugar and that is aside from all the sweet stuff, remember that fruits are good but they are Sweet also.Advise dietary modifications to control weight and sugar intake. Regular glucose monitoring is recommended. 5. GERD: Avoid the foods that causes that usually spicy foods, tomato products, juices, coffee, soda and foods that your sensitive to. After eating do not lie down, allow 3-4 hours before in lie down. And keep the head of bed above 30 degrees to avoid the acid from going up.Monitor dietary triggers, only use calcium carbonate Tums as needed for breakthrough symptoms. 6. Lumbar Radiculopathy: Management as needed, no specific changes discussed during this visit. 7. Shoulder Arthropathy: Follow up with orthopedic surgery consultation. 8. Tinnitus: No current treatments discussed. Patient was informed and verbally consented to the use of an ambient scribe for clinic note documentation during this visit. During our conversation, I explained the importance of controlling weight and dietary intake to manage and prevent the progression of impaired glucose tolerance into diabetes. We discussed long-term strategies, emphasizing the need to follow a low carbohydrate diet while increasing protein intake. The patient was informed about potential surgical options for shoulder arthropathy, highlighting the need to consult with an orthopedic surgeon. We addressed current blood test results and reinforced the continuity of taking prescribed medications for hypertension and hypercholesterolemia. The risks and benefits of continued monitoring of his cholesterol and glucose levels were reviewed. A follow-up plan was outlined to reassess these parameters in six months, based on agreed goals and patient?s adherence to recommended lifestyle changes. - Continue using CPAP machine as prescribed for obstructive sleep apnea. - Maintain current medication regimen for hypertension and hypercholesterolemia. - Follow a diet reducing carbohydrates and increasing proteins to manage glucose levels. - Monitor weight and engage in regular physical activity. - Schedule and attend an orthopedic consultation regarding shoulder management. - Use acid suppressant or antacids as needed for heartburn symptoms. - Return for follow-up assessments and lab tests in six months. - Report any new or worsening symptoms promptly. Orders: Orders Hemoglobin A1c 6 Months R73.01 - Impaired fasting glucose Comprehensive Met. Panel 6 Months R73.01 - Impaired fasting glucose Lipid Panel 6 Months E78.00 - Pure hypercholesterolemia, unspecified
[2024-04-26 08:24] VITALS: BP 124/76; PULSE 82; O2SAT 97; BMI 27.6
== END 2024-04-26 09:09 | disposition home or self-care (01) ==
PROVIDERS: PCP Internal Medicine; Visit Provider Internal Medicine
DX: G47.33 Obstructive sleep apnea (adult) (pediatric) (principal); I10 Essential (primary) hypertension; N40.1 Benign prostatic hyperplasia with lower urinary tract symptoms; R39.12 Poor urinary stream; K21.9 Gastro-esophageal reflux disease without esophagitis; Z86.73 Personal history of transient ischemic attack (TIA), and cerebral infarction without residual deficits; R73.01 Impaired fasting glucose; E78.00 Pure hypercholesterolemia, unspecified; Z00.00 Encounter for general adult medical examination without abnormal findings; M25.512 Pain in left shoulder

== ENCOUNTER → 2024-04-26 08:20 | Outpatient (BNVA) | payer MEDICARE, SELFPAY | PROVIDERS: PCP Internal Medicine; Visit Provider Internal Medicine | DX: Z00.00 Encounter for general adult medical examination without abnormal findings (principal); G47.33 Obstructive sleep apnea (adult) (pediatric); I10 Essential (primary) hypertension; N40.1 Benign prostatic hyperplasia with lower urinary tract symptoms; R39.12 Poor urinary stream; K21.9 Gastro-esophageal reflux disease without esophagitis; R73.01 Impaired fasting glucose; E78.00 Pure hypercholesterolemia, unspecified; M25.512 Pain in left shoulder; Z86.73 Personal history of transient ischemic attack (TIA), and cerebral infarction without residual deficits | CPT/HCPCS: 96127; 99212 ==

== ENCOUNTER 2024-10-19 06:20 | Outpatient (REF) | payer MEDICARE, SELFPAY ==
--- OUTSIDE RECORDS SUMMARY | 2024-10-19 06:22 | XMS_ITS | Encounter Summary ---
Author Name [facility] [place] [facility] [place] Address [address] [place] [address] Care Team Providers Care Mannequin Maker Name Role Phone MARTIN OSORIO [facility] Insurance Providers: All historical and current Section Date Range: From patient's date of to the date document was created. This section includes the names of all active insurance providers for the patient. Insurance Provider Type of Coverage Plan Name Start of Policy Coverage End of Policy Coverage Group Number Member ID Insurance Provider's Telephone Number Policy Monroe's Name Patient's Relationship to Policy Monroe [facility] BLUE BENEFITS ADMIN EXCLUSIVE PROVIDER YUKI Hidalgo EPO May 24, 2019 [id number] [phone] Bucky CLARKE PATIENT BS [facility] (WNR) MEDICARE ADVANTAGE [facility] (WNR) Jan 22, 2023 [id number] Bucky CLARKE PATIENT BS [facility] (WNR) MEDICARE ADVANTAGE [place] PPO BLUE SAVER RX Jan 22, 2023 [id number] Bucky CLARKE PATIENT Selected Encounter This section includes the information on record at [place] for the Encounter. Date/Time Encounter Type Encounter Description Reason Provider Source Jan 12, 2024 01:00 PM TYMPANOMETRY AUDIOLOGY ICD-10-CM H90.3 Sensorineural hearing loss, bilateral FELICIANO,KIMBERL Y ERLINDA IHE Encounter Template Text not used by [place] Assessments - Encounter Diagnoses This section includes the primary and secondary diagnoses documented for the Encounter. Date/Time Primary/Secondary Diagnosis Diagnosis Name Provider Source Jan 12, 2024 01:48 PM PRIMARY Sensorineural hearing loss, bilateral FELICIANO,KIMBERL Y [facility]RLINDA [facility] Jan 12, 2024 01:48 PM SECONDARY Tinnitus, bilateral FELICIANO,KIMBERL Y [facility]RLINDA [facility] Plan of Treatment: Future Appointments (+ 6 months) and Future Tests (+/- 45 days) The Plan of Treatment section includes future care activities for the patient from [facility] [place] [facility] This section includes future appointments and future orders which are active, pending or scheduled. Future Appointments This section includes appointments that were scheduled to occur 6 months from the date of the Encounter, up to a maximum of 20 appointments. The data comes from all [place] treatment facilities. Appointment Date/Time Appointment Type Appointme nt Facility Name Feb 17, 2024 01:00 PM [facility] Mar 07, 2024 04:45 PM [facility] - [facility]INE [facility] Social History: Smoking Status (Most current) and Tobacco Use (All prior to encounter date) This section includes the most current, and the historical, smoking and tobacco- related health factors from the [place] facility where the Encounter took place. Current Smoking Status This section includes the most current smoking, or tobacco-related health factor, from the [place] facility where the Encounter took place. Date/Time Current Smoking Status Comment Lorena ity Aug 02, 2023 08:30 AM VA-TOBACCO NEVER USED [facility] Tobacco Use History This section includes a history of the smoking, or tobacco-related health factors, that were collected on or before the date of the Encounter. The data comes from the [place] facility where the Encounter took place. Date/Time Smoking Status/Tobacco Use Comment F acility Jul 30, 2022 01:30 PM VA-TOBACCO [facility] Jul 30, 2022 01:30 PM [facility]-TOBACCO [facility]IT [facility] YRS [facility] Jul 25, 2021 01:30 PM VA-TOBACCO FORMER USER [facility] [place] [facility] Jul 25, 2021 01:30 PM VA-TOBACCO QUIT 15 YRS OR MORE [facility] [place] [facility] Jun 28, 2020 08:30 AM VA-TOBACCO FORMER USER [facility] [place] [facility] Jun 28, 2020 08:30 AM VA-TOBACCO QUIT 15 YRS OR MORE [facility] [place] [facility] Mar 14, 2019 02:51 PM VA-TOBACCO FORMER USER [facility] [place] [facility] Mar 14, 2019 02:51 PM VA-TOBACCO QUIT 15 YRS OR MORE [facility] [place] [facility] May 26, 2018 09:22 AM VA-TOBACCO NEVER USED [place] [facility] [place] [facility] Encounter Notes: All associated encounter notes This section contains the clinical notes associated to the Encounter. Date/Time Encounter Note(s) Provider Source Jan 12, 2024 08:00 AM AUDIOLOGY E & M NOTE: LOCAL TITLE: AUDIOLOGY CLINIC STANDARD TITLE: AUDIOLOGY E & M NOTE DATE OF NOTE: JAN 12, 2024@08:00 ENTRY DATE: JAN 12, 2024@08:00:09 AUTHOR: IVETH FELICIANO COSIGNER: URGENCY: STATUS: COMPLETED Dx CODE: H90.3-Sensorineural Hearing Loss, Bilateral APPOINTMENT TYPE: Hearing Re-Evaluation BACKGROUND/HISTORY: was seen 01/12/24 for a hearing re-evaluation appointment, unaccompanied. reports about two weeks ago he was lying in bed at night and noticed a chirping sound in his left ear whenever he turned his head. More recently he has noticed a faint humming sound in the left ear. The intermittent chirping and humming sound have not stopped. He reports prior to this he had longstanding constant bilateral tinnitus which he describes as a static sound. He denies otalgia, history of ear infections or surgeries, or drainage. He reports a single episode of vertigo ~15-18 years ago. His last hearing evaluation was on 01/21/23. He was fit with [employer] [facility] on 02/18/23. ASSESMENT: Results of today's testing are as follows: Otoscopy was WNL bilaterally. Normal tympanograms obtained bilaterally. 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 SRT WORD RECOGNITION (Recorded [place] [facility] 05/25 Word List) Right 20dBHL 92% @ 85dBHL/40dBm Left 25dBHL 80% @ 85dBHL/40dBm No significant changes were found when compared to the 01/21/23 audiological evaluation. Recommending ENT consult based off new left ear chirping/humming sound. EDUCATION/COUNSELING: The patient was counseled re: today's hearing test results. He demonstrated satisfactory understanding of the education and plan, and was given the opportunity to ask questions throughout today's visit. PLAN: 1. ENT consult placed to the [facility]. 2. Follow up as needed. * Patient Education Education provided on the following topics: Hearing test results Education provided to: P Response to Education: VU Casas Patient P Family F Significant Other SO Verbalizes Understanding VU Returns Demonstration RD Performs Independently PI Lacks Comprehension LC Refused Education RE Not Applicable NA * /scarlet/ IVETH FELICIANO STAFF CODING TEAM LEAD Signed: 01/12/2024 13:48 IVETH FELICIANO [facility] [place] [facility]
[2024-10-19 06:27] LABS: MANUAL DIFF FLAG NO
[2024-10-19 07:19] LABS: Basophils Percent Auto 0.9 % (0-2); Eosinophils Absolute Auto 0.2 X10*3/uL (0.0-0.4); Eosinophils Percent Auto 4.7 % (0-4); Hematocrit 40.9 % (42.0-52.0); Hemoglobin 13.6 g/dl (14.0-18.0); Imm Gran Abs Auto 0.03 X10*3/uL (0.00-0.03); Imm Gran Pct Auto 0.6 % (0.0-0.4); Lymphocytes Absolute Auto 1.8 X10*3/uL (1.2-4.9); Lymphocytes Percent Auto 38.6 % (20-40); Mean Corpuscular HGB Conc 33.3 g/dl (31.0-36.0); Mean Corpuscular Hemoglobin 30.5 pg (27.0-33.0); Mean Corpuscular Volume 91.7 fL (80.0-98.0); Mean Platelet Volume 9.8 fL (9.4-12.4); Monocytes Absolute Auto 0.6 X10*3/uL (0.1-1.2); Neutrophils Percent Auto 43.2 % (45-73); Platelet Count 224 X10*3/uL (160-400); Red Blood Count 4.46 X10*6/uL (4.60-5.80); Red Cell Distribution Width 12.6 % (11.0-16.0); White Blood Count 4.7 X10*3/uL (4.8-10.8)
[2024-10-19 07:25] LABS: Estimated Average Glucose 126 mg/dL
[2024-10-19 07:48] LABS: Alanine Aminotransferase 36 U/L (0-40); Albumin Level 4.3 g/dL (3.5-5.0); Alkaline Phosphatase 73 U/L (39-117); Anion Gap 13 (12-20); Aspartate Amino Transferase 30 U/L (5-37); Bilirubin Total 0.4 mg/dL (0.0-1.0); Blood Urea Nitrogen 15 mg/dL (9-16); Calcium 9.4 mg/dL (8.4-10.2); Carbon Dioxide 26 mmol/L (22-29); Chloride 110 mmol/L (96-108); Cholesterol 151 mg/dL (<200); Estimated Glomerular Filt Rate > 60; Glucose Random 103 mg/dL (60-115); HDL Cholesterol 59 mg/dL (>40); LDL Cholesterol Calculated 76 mg/dL (<100); Potassium 4.3 mmol/L (3.3-5.1); Sodium 145 mmol/L (135-145); Total Protein 6.8 g/dL (6.5-8.0); Triglycerides 80 mg/dL (<150)
[2024-10-19 08:15] LABS: Folate 14.6 ng/mL (> or = 4.0); Vitamin B12 597 pg/mL (200-900)
[2024-10-19 08:22] LABS: Free T4 (Free Thyroxine) 0.89 ng/dL (0.71-1.85); Thyroid Stimulating Hormone 1.85 uIU/mL (0.32-4.0)
== END 2024-10-19 06:21 | disposition home or self-care (01) ==
LOC: HO.LAB 06:20
PROVIDERS: PCP Internal Medicine; Visit Provider Internal Medicine
DX: R73.01 Impaired fasting glucose (principal); E78.00 Pure hypercholesterolemia, unspecified; Z12.5 Encounter for screening for malignant neoplasm of prostate
CPT/HCPCS: 36415; 80053; 80061; 82607; 82746; 83036; 84153; 84439; 84443; 85025

== ENCOUNTER 2024-10-25 09:39 | Outpatient (AMB) | payer MEDICARE, SELFPAY ==
[2024-10-25 09:41] VITALS: BP 124/82; PULSE 71; O2SAT 96; BMI 27.0
--- NOTE | 2024-10-25 09:41 | A.OFFPC_ITS ---
Vital Signs 10/25/24 09:41 Height 5 ft 7 in Weight 172 lb 8 oz BMI 27.0 BP 124/82 Blood Pressure Location Lt brachial Position Sitting Pulse 71 Pulse Source Pulse Oximeter Pulse Oximetry (%) 96 Oxygen Delivery Method Room Air Intake Visit Reasons: cholesterol, IGT Cage Shift Manager Required: No Accompanied by: Self / Same As Patient Allergies eszopiclone [Lunesta] Allergy (Intermediate, Verified 10/25/24 09:43) Hallucinations fluticasone [Flovent HFA] Allergy (Intermediate, Verified 10/25/24 09:43) Unknown prednisone [Prednisone] Allergy (Intermediate, Verified 10/25/24 09:43) SKIN CRAWLED-STEROID INHALER omprazole Adverse Reaction (Intermediate, Uncoded 10/25/24 09:43) bloating Medication List - Last Reconciled 10/25/24 by Garcia Vergara MD cholecalciferol (vitamin D3) 10 mcg PO DAILY clonazepam 1 mg PO BID PRN 90 days clopidogrel 75 mg PO DAILY 90 days [CPAP DreamWear nasal mask of medium size with pressure of 7 cm humidified air As directed] ezetimibe 10 mg PO DAILY inulin (Fiber Gummies) grams PO [iron PO DAILY] lisinopril 5 mg PO DAILY multivitamin 1 tab PO DAILY rosuvastatin 40 mg PO DAILY triamcinolone acetonide 0.025% 1 appl topical BID Tobacco use date assessed: 10/25/24 Fall risk assessment: 1 Fall in past year Last assessed Fall Risk: 10/25/24 Dental Screening Dental Screen Date: 10/25/24 Did you have a dental visit in the last 12 months?: Yes Did you have a dental problem in the last 6 months where you did not have access to dental care?: No Was dental information given to patient?: Patient has dentist HPI cholesterol, IGT HPI Details PAtient had L shoulder Arthroscopy 09/06/2024 Dr. Valles and will have PT PFSH Medical History (Updated 10/25/24 @ 10:04 by Garcia Vergara MD) FOND [place] (hard of hearing) PONV (postoperative nausea and vomiting) Hypercholesterolemia Impaired fasting blood sugar Cervical spinal stenosis Pancreatitis History of CVA (cerebrovascular accident) GERD (gastroesophageal reflux disease) BPH (benign prostatic hyperplasia) Hypercholesterolemia with endogenous hyperglyceridemia Hypertension Anxiety Obstructive sleep apnea Surgical History Hx of colonoscopy History of hemorrhoidectomy History of vasectomy History of arthroscopy of right knee History of inguinal hernia repair Family History Father Medical history unknown Mother Diabetes CVD (cardiovascular disease) CHF (congestive heart failure) Gout Arthritis Paternal Uncle Colon cancer Daughter HPV (human papilloma virus) infection Son In good health Sister Breast cancer in situ Social History Housing: House Are you a primary foster care therapist to a significant other at home: No Do you presently have visiting nurse or other home services: No Alcohol intake: current Comment: 2 beers Qd Patient Tobacco Use Status: Former Tobacco user Tobacco use type: Cigarette Years Smoked: 3 months of smoking 1976 e-Cigarette/Vaping Use: Never Used Second Hand Smoke Exposure: No Advance Directives Date on File: 06/28/17 Current occupational status: employed Cognitive needs: No Hearing needs: Yes Vision needs: Yes Questionnaire PHQ-9 Over the last 2 weeks, how often have you been bothered by any of the following problems? 1. Little interest or pleasure in doing things: not at all 2. Feeling down, depressed, or hopeless: not at all 3. Trouble falling or staying asleep, or sleeping too much: several days 4. Feeling tired or having little energy: not at all 5. Poor appetite or overeating: not at all 6. Feeling bad about yourself - or that you are a failure or have let yourself or your family down: not at all 7. Trouble concentrating on things, such as reading the newspaper or watching television: not at all 8. Moving or speaking so slowly that other people could have noticed. Or the opposite - being so fidgety or restless that you have been moving around a lot more than usual: not at all 9. Thoughts that you would be better off or of hurting yourself in some way: not at all Total score: 1 Source: Developed by Drs. Eliseo Echols, Eliza Nicholas, Arie Brennan and colleagues, with an educational henok from [employer]. Thrive Questionnaire Date Thrive assessed: 10/25/24 I am a: Patient What is your living situation today?: I have a steady place to live Within the past 12 months, did the food you bought not last and you didn't have the money to get more?: Never true Within the past 12 months, did you worry whether your food would run out before you got money to buy more?: Never true Do you have trouble paying for medicines?: No Do you have trouble getting transportation to medical appointments?: No Do you have trouble paying your heating and electricity bill?: No Do you have trouble taking care of your child, family member or friend?: No Do you have trouble with day-to-day activities such as bathing, preparing meals, shopping, managing finances, etc.?: No Are you currently unemployed and looking for a job?: No Are you interested in more education?: No Please select the resources that you would like help with: None Currently or been in a relationship where the following occur: No concerns reported THRIVE Score: 0 AUDIT C Alcohol Use Questionnaire (AUDIT-C) 1. How often do you have a drink containing alcohol?: 4 or more times a week 2. How many drinks containing alcohol do you have on a typical day when you are drinking?: 1 or 2 3. How often do you have six or more drinks on one occasion?: Never Total Score: 4 LOREE-7 AMB Questionnaire LOREE-7 Date LOREE - 7 assessed: 10/25/24 Feeling nervous, anxious, or on edge: 0 = Not at all Not being able to stop or control worryin = Not at all Worrying too much about different things: 0 = Not at all Trouble relaxin = Not at all Being so restless that it is hard to sit still: 0 = Not at all Becoming easily annoyed or irritable: 0 = Not at all Feeling afraid as if something awful might happen: 0 = Not at all Total LOREE-7 score (0-4 normal; 5-9 mild; 10-14 moderate; 15-21 severe): 0 Source: Developed by Drs. Eliseo Echols, Eliza Nicholas, Arie Brennan and colleagues, with an educational henok from [employer]. Physical exam (Primary Care) Vital Signs: Last Vital Signs Pulse 71 10/25/24 09:41 BP 124/82 10/25/24 09:41 Pulse Ox 96 10/25/24 09:41 Oxygen Delivery Method Room Air 10/25/24 09:41 BMI result Body Mass Index 27.0 Tobacco/Smoking Status: Tobacco use Status Tobacco use date assessed 10/25/24 10/25/24 09:45 Patient Tobacco Use Status Former Tobacco user 10/25/24 09:45 Tobacco use type Cigarette 10/25/24 09:45 e-Cigarette/Vaping Use Never Used 10/25/24 09:45 PHQ-9: PHQ-9 Score PHQ-9: Total score 1 10/25/24 09:45 Thrive Assessment: Date of Thrive Assessment Date Thrive assessed 10/25/24 10/25/24 09:45 Currently or been in a relationship where the following occur: No concerns reported Const General: alert; No acute distress Eyes Conjunctivae: conjunctivae normal Resp Auscultation: clear to auscultation bilaterally Cardio Rate: regular rate Rhythm: regular rhythm GI Inspection: Yes normal to inspection Extrem General: Yes normal to inspection and No edema Coding Level of Care Code Est Pt Level 4 (99306) Complex EM visit Add On G2211 Diagnoses Impingement of left shoulder M25.812 Fatty liver K76.0 Hypercholesterolemia E78.00 Impaired fasting blood sugar R73.01 History of CVA (cerebrovascular accident) Z86.73 Gastroesophageal reflux disease without esophagitis K21.9 Esophagitis presence: without esophagitis Benign prostatic hyperplasia with weak urinary stream N40.1; R39.12 Lower urinary tract symptom presence: symptoms present Lower urinary tract symptom detail: weak urinary stream Essential hypertension I10 Hypertension type: essential hypertension Obstructive sleep apnea G47.33 Generalized anxiety disorder F41.1 Actinic keratosis of forehead L57.0 Assessment & Plan Assessment & Plan (1) Impingement of left shoulder: Comment: Dr. valentina [facility] arthroscopic surgery for rotator cuff tear Code(s): M25.812 - Other specified joint disorders, left shoulder Category: Medical Plan: Patient follows up with orthopedics and was advised physical therapy (2) Fatty liver: Code(s): K76.0 - Fatty (change of) liver, not elsewhere classified Category: Medical Plan: Continue with low-fat diet and exercise patient did see Gastroenterology. (3) Hypercholesterolemia: Code(s): E78.00 - Pure hypercholesterolemia, unspecified Category: Medical Plan: Avoid fried foods, chicken skin, eggs, butter margarine, pastries and meat. Be it pork or beef they have a lot of cholesterol LDL goal of less than 70 and triglyceride of less than 150 patient is on rosuvastatin 40 mg once a day and Zetia 10 mg once a day (4) Impaired fasting blood sugar: Code(s): R73.01 - Impaired fasting glucose Category: Medical Plan: Decrease the amount of carbohydrate intake, pasta, bread, rice and potatoes are all sugar and that is aside from all the sweet stuff, remember that fruits are good but they are Sweet also. (5) History of CVA (cerebrovascular accident): Comment: Brainstem October 2019 Code(s): Z86.73 - Personal history of transient ischemic attack (TIA), and cerebral infarction without residual deficits Category: Medical Plan: Control the cholesterol, weight, blood pressure, patient is on clopidogrel (6) GERD (gastroesophageal reflux disease): Code(s): K21.9 - Gastro-esophageal reflux disease without esophagitis Category: Medical Qualifiers: Esophagitis presence: without esophagitis Qualified Code(s): K21.9 - Gastro-esophageal reflux disease without esophagitis Plan: Avoid the foods that causes that usually spicy foods, tomato products, juices, coffee, soda and foods that your sensitive to. After eating do not lie down, allow 3-4 hours before in lie down. And keep the head of bed above 30 degrees to avoid the acid from going up. (7) BPH (benign prostatic hyperplasia): Code(s): N40.0 - Benign prostatic hyperplasia without lower urinary tract symptoms Category: Medical Qualifiers: Lower urinary tract symptom presence: symptoms present Lower urinary tract symptom detail: weak urinary stream Qualified Code(s): N40.1 - Benign prostatic hyperplasia with lower urinary tract symptoms; R39.12 - Poor urinary stream Plan: Stable (8) Hypertension: Comment: Echo October 2019 EF 60-65 Code(s): I10 - Essential (primary) hypertension Category: Medical Qualifiers: Hypertension type: essential hypertension Qualified Code(s): I10 - Essential (primary) hypertension Plan: Continue with blood pressure medication. Decrease salt intake and exercise patient is on lisinopril 5 mg once a day (9) Obstructive sleep apnea: Comment: Two thousand seventeen Code(s): G47.33 - Obstructive sleep apnea (adult) (pediatric) Category: Medical Plan: Continue to use the CPAP more than 4 hours a night and benefits from this. (10) Generalized anxiety disorder: Code(s): F41.1 - Generalized anxiety disorder Category: Medical Plan: Continue with present medication as needed (11) Actinic keratosis of forehead: Code(s): L57.0 - Actinic keratosis Category: Medical Plan History of Present Illness The patient is a 69-year-old male presenting for a follow-up visit concerning the management of several chronic conditions and post-operative care for the left shoulder. The shoulder underwent arthroscopy on September 06, revealing a rotator cuff tear and a torn biceps tendon not previously detected by MRI. The patient has started physical therapy and reports limited movement but progressive improvement in mobility. His obstructive sleep apnea is managed effectively with CPAP therapy for more than four hours nightly. Hypertension is controlled with lisinopril 5 mg daily, while anxiety disorder is stable under current medication. The patient?s benign prostatic hyperplasia and gastroesophageal reflux disease continue under ongoing treatment. Longstanding impaired glucose tolerance is monitored, with recent blood work showing moderate control with an A1c of 6.0. Hypercholesterolemia remains a concern, with the current LDL level at 76 mg/dL, managed with high- dose rosuvastatin and Zetia. Additionally, the patient has noticed a change in a scalp lesion consistent with actinic keratosis, warranting referral to dermatology, as advised. The patient has routine follow-ups for possible further interventions as necessary. Health Maintenance - Up-to-date on vaccinations including shingles and first pneumonia shot; future scheduling for second pneumonia shot discussed. - Regular physical activity encouraged, with continuation of 3-4 walks weekly. - Dietary changes for glucose and cholesterol management recommended with focus on low-fat intake. - Monitoring of prediabetes with emphasis on diet and lifestyle changes. - Annual physical exam and regular blood work monitoring outlined. - Referral to [facility] for scalp lesion evaluation. - Physical therapy for left shoulder rehabilitation. Social History - Retired, living with a partner. - Dietary modifications with girlfriend's support, increasing vegetable intake and portion control. - Regular physical activity includes walking 3-4 times a week. - Reports of increased meal intake since correction, leading to concerns about weight gain. - Maintains a partnership dynamic with involvement in meal preparation and health maintenance activities. Review of Systems - Constitutional: Denies fever or weight loss, reports sleeping well with CPAP. - Dermatologic: Reports a scalp lesion that is enlarging and bumpy. - Musculoskeletal: Reports limited shoulder mobility, improving with physical therapy. - Neurologic: No new neurological symptoms post-CVA; stable condition. - Respiratory: Denies shortness of breath or cough. - Cardiovascular: Denies chest pain or palpitations. - Genitourinary: Denies frequency, urgency, nocturia up to twice nightly. - Endocrine: Denies polyuria or polydipsia, managing impaired glucose tolerance. - Gastrointestinal: Denies heartburn, maintains dietary management for GERD. Physical Exam Results - Labs: Hemoglobin 13.6 g/dL indicating mild anemia, WBC count 4.7 K/?L showing leukopenia. - Blood Glucose: 103 mg/dL with Hemoglobin A1c of 6.0%. - Lipid Panel: LDL 76 mg/dL, PSA 3.6 ng/mL. - Electrolytes: Sodium and Potassium levels within normal limits. - Liver function stable with no recent abnormalities. - B12 and Folic Acid levels within normal limits. Plan The patient's CPAP treatment for obstructive sleep apnea remains effective and unaltered. Essential hypertension management continues with lisinopril 5 mg daily, ensuring stable control. The patient?s generalized anxiety disorder continues to be stable with current treatment. Lipid management with rosuvast atin and Zetia helps maintain LDL levels within target ranges. Impaired glucose tolerance calls for attention to dietary habits, further supported by routine monitoring. For the ongoing issue of mild anemia and leukopenia, follow-up labs are planned. Physical therapy is crucial for recovery from recent shoulder surgery, guiding rehabilitation progressively. Dermatology referral addresses concerns over an enlarging scalp lesion. The patient?s health maintenance involves routine screenings and updates on immunizations, alongside physical activity and nutritional adjustments to benefit overall health. Patient was informed and verbally consented to the use of an ambient scribe for clinic note documentation during this visit. Discussion Notes I discussed at length the management plans for the patient's chronic conditions, including adherence to CPAP for sleep apnea and lisinopril for hypertension, both contributing to stable control. We reviewed the continuing need for strict lipid control, especially given the post-stroke history. Diet and activity guidance was provided to manage impaired glucose tolerance, with emphasis on preventing diabetes onset. The strategies for addressing mild anemia involve monitoring and dietary iron intake, pending further lab reevaluation. We spoke about the approach for his shoulder recovery post-surgery, emphasizing the importance of ongoing physical therapy. The dermatology evaluation was essential given the noted changes in the patient's scalp lesion, with a referral put into place. Throughout, we agreed on the necessity of ongoing monitoring and coordination of care, with emphasis on maintaining lifestyle interventions. A dermatologic referral was confirmed for the growing scalp lesion, a focus of concern indicated by clinical changes. The patient was informed of the processes and expected waiting periods for consultation scheduling, ensuring understanding and engagement. Patient Instructions - Continue using CPAP device nightly for obstructive sleep apnea. - Take lisinopril 5 mg daily for blood pressure control. - Follow prescribed therapy for generalized anxiety disorder. - Maintain healthy diet and exercise for glucose tolerance and cholesterol management. - Attend physical therapy sessions as recommended for shoulder recovery. - Contact dermatology for an appointment regarding scalp lesion. - Keep regular appointments for blood work and health check-ups. - Monitor for symptoms or changes and report as needed. - Stay hydrated and engage in regular walking exercises. Orders: Orders Comprehensive Met. Panel 6 Months Z86.73 - Personal history of transient ischemic attack (TIA), and cerebral infarction without residual deficits Free T4 (Free Thyroxine) 6 Months Z86.73 - Personal history of transient ischemic attack (TIA), and cerebral infarction without residual deficits Thyroid Stimulating Hormone 6 Months Z86.73 - Personal history of transient ischemic attack (TIA), and cerebral infarction without residual deficits UA CC w/rflx Micro + Cult 6 Months R30.0 - Dysuria, Z86.73 - Personal history of transient ischemic attack (TIA), and cerebral infarction without residual deficits Complete Blood Count Auto Diff 6 Months Z86.73 - Personal history of transient ischemic attack (TIA), and cerebral infarction without residual deficits Lipid Panel 6 Months E78.00 - Pure hypercholesterolemia, unspecified, Z86.73 - Personal history of transient ischemic attack (TIA), and cerebral infarction without residual deficits Hemoglobin A1c 6 Months Z86.73 - Personal history of transient ischemic attack (TIA), and cerebral infarction without residual deficits Vitamin B12 and Folate 6 Months Z86.73 - Personal history of transient ischemic attack (TIA), and cerebral infarction without residual deficits Prostate Specific Antigen Scr 6 Months Z86.73 - Personal history of transient ischemic attack (TIA), and cerebral infarction without residual deficits Referrals Dermatology Referral L57.0 - Actinic keratosis
--- OUTSIDE RECORDS SUMMARY | 2024-10-25 10:08 | XMS_ITS | Patient Health Record ---
Author Organization [facility] Address [address] [place] [phone] Care Team Providers Care Mountain Or Glacier Guide Name Role Phone Garcia Vergara MD Primary Care Provider Socrates Pan Jr Unavailable Allergies Allergen (clinical drug ingredient) Drug/Non Drug Allergy documented on EMR Reaction Allergy Type Onset Date Status fluticasone Flovent HFA Unknown Drug Allergy Act bernard Reason For Referral No Information Medications Medication SIG (Take, Route, Frequency, Duration) Notes Start Date End Date Status Crestor 40 MG 1 tablet Orally Once a day Active Ezetimibe 10 MG 1 tablet Orally Once a day for 30 day(s) Active Multivitamin - 1 tablet Orally once a day Active clonazePAM 1 MG 1 tablet Orally Once a day Active Iron 1 tablet Orally Once a day Active Lisinopril 5 MG 1 tablet Orally Once a day for 30 day(s) Active Vitamin D3 2500 1 tablet Orally Once a day Active Clopidogrel Bisulfate 75 MG 1 tablet Ora lly Once a day for 30 day(s) Active Immunizations Vaccine Route Administration Date Status Comme nts Influenza Unknown 03/24/2018 Administered Influenza Unknown 01/22/2019 Administered Influenza Unknown 04/09/2021 Administered Influenza Unknown 03/10/2022 Administered Influenza Unknown 03/16/2023 Administered Influenza Unknown 03/07/2024 Administered Social History Tobacco Use: Social History Observation Description Date Details (start date - stop date) Never Smoker NA - NA Tobacco Use/Smoking Question Answer Notes Patient is a nonsmoker Alcohol Screen Question Answer Notes Did you have a drink contain ing alcohol in the past year? Yes How often did you have a dri nk containing alcohol in the past year? 4 or more times a week (4 points) How many drinks did you have on a typical day when you were drinking in the past year? 1 or 2 drinks (0 point) How often did you have 6 or more drinks on one occasion in the past year? 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.82) Active confirmed Problem 357906127 Elevated liver function tests (R79.89) Active confirmed Problem 806179071 Gastroesophageal reflux disease without esophagitis (K21.9) Active confirmed Vital Signs Temperature 97.5 degrees Fahrenheit 08/23/2024 Blood pressure diastolic 01 mm Hg 08/23/2024 Height 68 in 08/23/2024 Blood pressure systolic 001 mm Hg 08/23/2024 Weight 175.2 lbs 08/23/2024 BMI 26.64 kg/m2 08/23/2024 Encounters Encounter Location Date Provider Diagnosis [facility] [address] [place] [phone] 08/23/2024 Socrates Briseno Jr Elevated liver function tests R79.89 ; Gastroesophageal reflux disease without esophagitis K21.9 and Colon cancer screening Z12.11 [facility] [address] [place] [phone] 05/26/2024 Socrates Briseno Jr Assessments Encounter Date Diagnosis (ICD Code) Assessment Notes Treatment Notes Treatment Clinical Notes Section Notes 08/23/2024 Elevated liver function tests (ICD-10 - R79.89) Currently, he is doing well. Reflux symptoms are under good control with diet. We discussed diet, lifestyle modifications, and weight management. Liver function tests have been stable on multiple determinations recently and he will continue to watch his diet and weight. He is up-to-date on colorectal cancer screening. Follow-up will be arranged in the future as needed. He is already in the computer for a recall.Today's visit was 30 minutes. 08/23/2024 Gastroesophageal reflux disease without esophagitis (ICD-10 - K21.9) Currently, he is doing well. Reflux symptoms are under good control with diet. We discussed diet, lifestyle modifications, and weight management. Liver function tests have been stable on multiple determinations recently and he will continue to watch his diet and weight. He is up-to-date on colorectal cancer screening. Follow-up will be arranged in the future as needed. He is already in the computer for a recall.Today's visit was 30 minutes. 08/23/2024 Colon cancer screening (ICD-10 - Z12.11) Currently, he is doing well. Reflux symptoms are under good control with diet. We discussed diet, lifestyle modifications, and weight management. Liver function tests have been stable on multiple determinations recently and he will continue to watch his diet and weight. He is up-to-date on colorectal cancer screening. Follow-up will be arranged in the future as needed. He is already in the computer for a recall.Today's visit was 30 minutes. Plan Of Treatment Future Test Test Name Order Date COLONOSCOPY 04/28/2018 UPPER GI ENDOSCOPY 12/20/2019 Insurance Providers Payer Name Payer Address Payer Phone Subscriber Number Group Number Insured Name Patient Relationship to Insured Coverage Start Date Coverage End Date [facility] [address] [place], [place] [id number] [phone] [id number] ADRIEL CLARKE Self - patient is the insured Medical (General) History Medical History History ICD Code elevated cholesterol insomnia minor stroke 10/2019 hard of hearing Hypertension Gastroesophageal reflux disease, EGD 12/22 02/10, no BE or HP. Colonoscopy 08/19/18, normal, ten-year fo llowup Surgical History Surgery Date(Month/Year) back surgery inguinal hernia repair right knee hemorrhoidectomy
== END 2024-10-25 10:13 | disposition home or self-care (01) ==
LOC: HO.HMCH 09:40
PROVIDERS: PCP Internal Medicine; Visit Provider Internal Medicine
DX: M25.812 Other specified joint disorders, left shoulder (principal); K76.0 Fatty (change of) liver, not elsewhere classified; E78.00 Pure hypercholesterolemia, unspecified; R73.01 Impaired fasting glucose; Z86.73 Personal history of transient ischemic attack (TIA), and cerebral infarction without residual deficits; K21.9 Gastro-esophageal reflux disease without esophagitis; N40.1 Benign prostatic hyperplasia with lower urinary tract symptoms; R39.12 Poor urinary stream; I10 Essential (primary) hypertension; G47.33 Obstructive sleep apnea (adult) (pediatric); F41.1 Generalized anxiety disorder; L57.0 Actinic keratosis

== ENCOUNTER → 2024-10-25 09:39 | Outpatient (BNVA) | payer MEDICARE, SELFPAY | PROVIDERS: PCP Internal Medicine; Visit Provider Internal Medicine | DX: I10 Essential (primary) hypertension (principal); M25.812 Other specified joint disorders, left shoulder; K76.0 Fatty (change of) liver, not elsewhere classified; E78.00 Pure hypercholesterolemia, unspecified; R73.01 Impaired fasting glucose; K21.9 Gastro-esophageal reflux disease without esophagitis; N40.1 Benign prostatic hyperplasia with lower urinary tract symptoms; R39.12 Poor urinary stream; G47.33 Obstructive sleep apnea (adult) (pediatric); F41.1 Generalized anxiety disorder; L57.0 Actinic keratosis; Z86.73 Personal history of transient ischemic attack (TIA), and cerebral infarction without residual deficits; Z99.89 Dependence on other enabling machines and devices | CPT/HCPCS: 96127; 99212 ==

== ENCOUNTER 2025-04-27 06:08 | Outpatient (REF) | payer MEDICARE, SELFPAY ==
--- OUTSIDE RECORDS SUMMARY | 2025-04-27 06:10 | XMS_ITS | Patient Health Record ---
Author Organization [facility] Address [address] [place] [phone] Care Team Providers Care Veneer Glue Jointer Feedback Name Role Phone Garcia Vergara MD Primary Care Provider Socrates Pan Jr Unavailable [phone] Allergies Allergen (clinical drug ingredient) Drug/Non Drug Allergy documented on EMR Reaction Allergy Type Onset Date Status fluticasone Flovent HFA Unknown Drug Allergy Act bernard Reason For Referral No Information Medications Medication SIG (Take, Route, Frequency, Duration) Notes Start Date End Date Status Crestor 40 MG Tablet 1 tablet Orally Onc e a day Active Ezetimibe 10 MG Tablet 1 tablet Orally O nce a day; Duration: 30 day(s) Active Multivitamin - tablet 1 tablet Orally on ce a day Active clonazePAM 1 MG Tablet 1 tablet Orally O nce a day Active Iron 1 tablet Orally Once a day Active Lisinopril 5 MG Tablet 1 tablet Orally O nce a day; Duration: 30 day(s) Active Vitamin D3 2500 iu 1 tablet Orally Once a day Active Clopidogrel Bisulfate 75 MG Tablet 1 tablet Orally Once a day; Duration: 30 day(s) Active Immunizations Vaccine Route Administration Date Status Comme nts Influenza Unknown 03/24/2018 Administered Influenza Unknown 01/22/2019 Administered Influenza Unknown 04/09/2021 Administered Influenza Unknown 03/10/2022 Administered Influenza Unknown 03/16/2023 Administered Influenza Unknown 03/07/2024 Administered Social History Tobacco Use: Social History Observation Description Date Details (start date - stop date) Never Smoker NA - NA Social History Drugs/Alcohol: Social Info Question Answer Notes Alcohol Screen Did you have a drink containing alcohol in the past year? Yes How often did you have a drink containing alcohol in the past year? 4 or more times a week (4 points) How many drinks did you have on a typical day when you were drinking in the past year? 1 or 2 drinks (0 point) How often did you have 6 or more drinks on one occasion in the past year? Never (0 point) Points 4 Interpretation Positive Tobacco Use: Social Info Question Answer Notes Tobacco Use/Smoking Patient is a nonsmoker Additional Details Category Social Info Options Details Miscellaneous: Marital status: Occupation: [employer] Problems Problem Type SNOMED Code ICD Code Onset Dates Problem Status W/U Status Risk Notes Problem Colon cancer screening (341996358) Colon cancer screening (Z12.11) Active confirmed Problem Pre-procedure evaluation check (124584370) Encounter for other preprocedural examination (Z01.818) Active confirmed Problem Long-term current use of antiplatelet drug (163454123519456) senior care (current) use of aspirin (Z79.82) Active confirmed Problem Elevated liver enzymes level (190916271) Elevated liver function tests (R79.89) Active confirmed Problem Gastroesophageal reflux disease without esophagitis (031637385) Gastroesophageal reflux disease without esophagitis (K21.9) Active confirmed Vital Signs Temperature 97.5 degrees Fahrenheit 08/23/2024 Blood pressure diastolic 01 mm Hg 08/23/2024 Height 68 in 08/23/2024 Blood pressure systolic 001 mm Hg 08/23/2024 Weight 175.2 lbs 08/23/2024 BMI 26.64 kg/m2 08/23/2024 Encounters Encounter Location Date Provider Diagnosis [facility] [address] [place] [phone] 08/23/2024 Socrates Briseno Jr Elevated liver function tests R79.89 ; Gastroesophageal reflux disease without esophagitis K21.9 and Colon cancer screening Z12.11 [facility] [address] [place] [phone] 08/23/2024 Socrates Briseno Jr [facility] [address] [place] [phone] 05/26/2024 Socrates Briseno Jr Assessments Encounter Date [...] Insured Coverage Start Date Coverage End Date [facility] [address] [place], [place] [id number] ADRIEL CLARKE Self - patient is the insured Medical (General) History Medical History History ICD Code elevated cholesterol insomnia minor stroke 10/2019 hard of hearing Hypertension Gastroesophageal reflux disease, EGD 12/22 02/10, no BE or HP. Colonoscopy 08/19/18, normal, ten-year fo llowup Surgical History Surgery Date(Month/Year) hemorrhoidectomy right knee inguinal hernia repair back surgery
--- OUTSIDE RECORDS SUMMARY | 2025-04-27 06:10 | XMS_ITS ---
Author Name Herb Tovar Address Unknown Organization [facility] Care Team Providers Care Oral Surgeon Name Role Phone Unavailable Primary Care Physician Unavailab le History Of Present Illness This is a 69 year old male who is an established patient being seen for a chief complaint of nail disorder, located on the left thumbnail. The nail disorder presents with: Lines on the nail, cuticle is red and inflammed. He has had nail problems for 4 weeks. 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) 64411964(S NOMED) Diagnosis active 11/06/2024 Inflamed seborrheic keratosis (disorder) 136036540( SNOMED) Diagnosis active 11/06/2024 Seborrheic keratosis (disorder) 818627047( SNOMED) Diagnosis active 11/06/2024 Increased blood pressure (finding) 19474077(S NOMED) Problem active Hearing loss (disorder) 72050796(S NOMED) Problem active Hypercholesterolemia (disorder) 72298735(S NOMED) Problem active History of clinical finding in subject (situation) 364114340( SNOMED) Problem active Disorder of nail (disorder) 12376273(S NOMED) Diagnosis active 04/24/2025 Cerebrovascular accident (disorder) 862209886( SNOMED) Problem active Results No data Encounters Service provided at [facility], [address] [place] [address], [address], [place], [place] [id number]. Office phonenumber is [phone]. Office fax number is [phone]. Encounter Diagnosis Location Date / Time Type Disc harge Status Nail Disease Unspecified (L60.9) [facility] 04/24/2025 18:15:00 [place] [address] Reason For Referral No data Procedures Procedure Date Documentation of current medications (pr ocedure) 04/25/2025 12:00 am UTC Documentation of current medications (pr ocedure) 11/06/2024 12:00 am UTC Shave biopsy (procedure) 11/06/2024 12:0 0 am UTC Cryotherapy of skin lesion with liquid n itrogen (procedure) 11/06/2024 12:00 am UTC Documentation of past medical history (p rocedure) Documentation of past medical history (p rocedure) Documentation of past medica l history (procedure) Left rotator cuff and bicep tendon repair 2024Lumbar decompression 2022Hemorrhoid surgery 10+ years agoTorn ACL repair 20 years ago Review Of Systems Provider reviewed on Apr 24, 2025.A focused review of systems was performed including Hematologic /Lymphatic and Integumentary and was notable for problems with bleeding.No Problems With Healing AndNo Problems With Scarring (hypertrophic Or Keloid). Assessment 1.Nail Disease UnspecifiedCounselingAdditional NotesPhoto-Documentation: fingernail.OTC Treatment Regimen: Patient Specific OTC Recommendations (Will Not Stick From Patient to Patient) - Apply Vaseline to affected nail BID. Plan of Care Future visit for 07/17/2025 - Follow up in 3 months for: Focused Visit Instructions * I counseled the patient regarding the following:Skin care: Some types of nail diseases can improve with topical keratolytics.Expectations: Nail Disease is characterized by dystrophy of the nail plate. Causes include fungal infection, inflammatory dermatosis such as psoraisis, lichen planus and alopecia areata, trauma and pigmentary disorders.Contact office if: Nail Disease spreads or worsens despite months of therapy. Social History Code Activity Start Date End Date 4580906 (SNOMED) Former smoker Sex Male Sexual orientation Don't Know Gender identity Unspecified Vital Signs No data Insurances Coverage Status Coverage Type Relationship to Subscriber Member Identifier Subscriber Identifier Group Identifier Payer Identifier Inactive 1 Self [id number] Active Self [id number]
[2025-04-27 07:19] LABS: Hematocrit 43.7 % (42.0-52.0); Hemoglobin 14.4 g/dl (14.0-18.0); Imm Gran Abs Auto 0.02 X10*3/uL (0.00-0.03); Imm Gran Pct Auto 0.4 % (0.0-0.4); Lymphocytes Absolute Auto 1.5 X10*3/uL (1.2-4.9); MANUAL DIFF FLAG NO; Mean Corpuscular HGB Conc 33.0 g/dl (31.0-36.0); Mean Corpuscular Hemoglobin 30.8 pg (27.0-33.0); Mean Corpuscular Volume 93.6 fL (80.0-98.0); NRBC Abs Auto 0.000 X10*3/uL (0.0-0.012); NRBC Pct Auto 0.0 /100WBC (0.0-0.2); Platelet Count 210 X10*3/uL (160-400); Red Blood Count 4.67 X10*6/uL (4.60-5.80); White Blood Count 4.9 X10*3/uL (4.8-10.8)
[2025-04-27 08:01] LABS: Alanine Aminotransferase 26 U/L (0-40); Albumin Level 4.8 g/dL (3.5-5.0); Alkaline Phosphatase 71 U/L (39-117); Anion Gap 12 (12-20); Aspartate Amino Transferase 25 U/L (5-37); Blood Urea Nitrogen 23 mg/dL (9-16); Calcium 9.8 mg/dL (8.4-10.2); Carbon Dioxide 26 mmol/L (22-29); Chloride 109 mmol/L (96-108); Cholesterol 165 mg/dL (<200); Estimated Glomerular Filt Rate > 60; HDL Cholesterol 67 mg/dL (>40); Potassium 5.4 mmol/L (3.3-5.1); Sodium 142 mmol/L (135-145); Total Protein 7.0 g/dL (6.5-8.0); Triglycerides 67 mg/dL (<150)
[2025-04-27 08:16] LABS: Appearance Urine Clear; Glucose Urine UA Negative (Negative); PH 5.0 (5.0-9.0); Specific Gravity - Urine 1.025 (1.005-1.025)
[2025-04-27 08:23] LABS: Free T4 (Free Thyroxine) 0.88 ng/dL (0.71-1.85); Thyroid Stimulating Hormone 1.45 uIU/mL (0.32-4.0)
[2025-04-27 08:34] LABS: Folate 14.1 ng/mL (> or = 4.0); Vitamin B12 427 pg/mL (200-900)
== END 2025-04-27 06:09 | disposition home or self-care (01) ==
LOC: HO.LAB 06:08
PROVIDERS: PCP Internal Medicine; Visit Provider Internal Medicine
DX: Z12.5 Encounter for screening for malignant neoplasm of prostate (principal); E78.00 Pure hypercholesterolemia, unspecified; R73.01 Impaired fasting glucose; R30.0 Dysuria; Z86.73 Personal history of transient ischemic attack (TIA), and cerebral infarction without residual deficits
CPT/HCPCS: 36415; 80053; 80061; 81003; 82607; 82746; 83036; 84153; 84439; 84443; 85025

== ENCOUNTER 2025-05-09 09:08 | Outpatient (AMB) | payer MEDICARE, SELFPAY ==
--- NOTE | 2025-05-09 09:26 | MHC.PC.OV ---
Vital Signs 05/09/25 09:27 Height 5 ft 7 in Weight 173 lb BMI 27.1 BP 128/68 Blood Pressure Location Lt brachial Position Sitting Respiration 18 Pulse 76 Pulse Source Pulse Oximeter Temp 97.6 F Temp Source Temporal Artery Scan Pulse Oximetry (%) 98 Oxygen Delivery Method Room Air Intake Visit Reasons: Annual Exam - see comments Plan Rep Required: No Accompanied by: Self / Same As Patient Allergies eszopiclone (Lunesta) Allergy (Intermediate, Verified 05/09/25 09:27) Hallucinations fluticasone (Flovent HFA) Allergy (Intermediate, Verified 05/09/25 09:27) Unknown prednisone (Prednisone) Allergy (Intermediate, Verified 05/09/25 09:27) SKIN CRAWLED-STEROID INHALER omprazole Adverse Reaction (Intermediate, Uncoded 10/25/24 09:43) bloating Medication List - Last Reconciled 05/09/25 by Garcia Vergara MD cholecalciferol (vitamin D3) 10 mcg PO DAILY clonazepam 1 mg PO BID PRN 90 days clopidogrel 75 mg PO DAILY 90 days [CPAP DreamWear nasal mask of medium size with pressure of 7 cm humidified air As directed] ezetimibe 10 mg PO DAILY inulin (Fiber Gummies) grams PO lisinopril 5 mg PO DAILY multivitamin 1 tab PO DAILY rosuvastatin 40 mg PO DAILY Tobacco use date assessed: 10/25/24 Fall risk assessment: No Falls in past year Last assessed Fall Risk: 05/09/25 Dental Screening Dental Screen Date: 10/25/24 HPI HPI Comments History of Present Illness Details History of Present Illness The patient is a 69 year old male presenting for a physical exam and management of chronic conditions. His past medical history is significant for obstructive sleep apnea since 2016, hypertension, generalized anxiety disorder, GERD, benign prostatic hyperplasia, lumbar degenerative disc disease, cholelithiasis, and hepatic steatosis. 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 Regarding his left shoulder, he underwent an arthroscopic rotator cuff repair, distal clavicular excision, subacromial decompression with partial acromioplasty, and open biceps tenodesis in August. He completed physical therapy until January and recently, in March, received a cortisone injection from his surgeon for some discomfort. He currently describes his shoulder as feeling great and continues his exercises at home. The patient has a history of prediabetes with a stable hemoglobin A1c of 6.0%. He also has hypercholesterolemia, and his most recent LDL was 85, an increase from his prior level of 76. A recent blood test from April 27 also showed a new finding of mildly elevated potassium at 5.4, while his renal function remains stable. His last colonoscopy was in November 2019, which showed benign polyps, with a recommendation for a 10-year follow-up interval. He follows with dermatology and recently had a benign lesion biopsied and removed from his lip. The patient reports chronic right-sided sinus congestion that is sensitive to atmospheric pressure changes; a past CT scan showed ethmoid sinus thickening. His family history is notable for high cholesterol in his mother and sister. His father had prostate issues requiring surgery, and his 60-year-old brother currently has prostate cancer that is being monitored. He currently takes lisinopril, rosuvastatin, ezetimibe, clopidogrel, vitamin D, multivitamins, fiber gummies, and clonazepam as needed. He had previously experienced appetite changes as a side effect of omeprazole. Health Maintenance The patient will continue his current medications, including lisinopril for blood pressure, rosuvastatin and ezetimibe for cholesterol, and clopidogrel. He is advised to continue using his CPAP for obstructive sleep apnea and to maintain a low-fat diet and exercise routine. A follow-up appointment is scheduled for three months to review lab results and reassess the plan. Social History - Alcohol: Reports drinking a couple of beers every day. - Tobacco: Denies smoking. - Illicit Drugs: Denies use of recreational drugs. - Exercise: He tries to walk three times a week and works out with weights. - Diet: Reports staying hydrated with water flavored with a small amount of V8 Splash fruit juice. He drinks 3 to 4, and up to 8, 16-ounce tumblers of fluid per day. He denies eating high-potassium foods like bananas, spinach, and potatoes. - Occupation: He is a retired sharma. Results - Labs (April 27): - CBC: Normal, with no anemia. - CMP: Sodium normal, potassium mildly elevated at 5.4, renal function stable at 1.11. - Hemoglobin A1c: 6.0%. - Lipid Panel: LDL 85. - Liver Function: Normal. - PSA: Stable. - B12, Folic acid: Within normal limits. - Urinalysis: Normal. - Procedures: - Colonoscopy (November 2019): Results showed benign polyps. - Lip Biopsy: Benign. - Sinus CT (prior): Showed ethmoid sinus thickening. PFSH Medical History (Updated 05/09/25 @ 09:56 by Garcia Vergara MD) [place] (hard of hearing) PONV (postoperative nausea and vomiting) Hypercholesterolemia Impaired fasting blood sugar Cervical spinal stenosis Pancreatitis History of CVA (cerebrovascular accident) GERD (gastroesophageal reflux disease) BPH (benign prostatic hyperplasia) Hypercholesterolemia with endogenous hyperglyceridemia Hypertension Anxiety Obstructive sleep apnea Surgical History Hx of colonoscopy History of hemorrhoidectomy History of vasectomy History of arthroscopy of right knee History of inguinal hernia repair Family History Father Medical history unknown Mother Diabetes CVD (cardiovascular disease) CHF (congestive heart failure) Gout Arthritis Paternal Uncle Colon cancer Daughter HPV (human papilloma virus) infection Son In good health Sister Breast cancer in situ Social History Housing: House Are you a primary assistant child care teacher to a significant other at home: No Do you presently have visiting nurse or other home services: No Alcohol intake: current Comment: 2 beers Qd Patient Tobacco Use Status: Former Tobacco user Tobacco use type: Cigarette Years Smoked: 3 months of smoking 1976 e-Cigarette/Vaping Use: Never Used Second Hand Smoke Exposure: No Advance Directives Date on File: 06/28/17 Current occupational status: employed Cognitive needs: No Hearing needs: Yes Vision needs: Yes Questionnaire Thrive Questionnaire Date Thrive assessed: 10/19/24 I am a: Patient What is your living situation today?: I have a steady place to live Within the past 12 months, did the food you bought not last and you didn't have the money to get more?: Never true Within the past 12 months, did you worry whether your food would run out before you got money to buy more?: Never true Do you have trouble paying for medicines?: No Do you have trouble getting transportation to medical appointments?: No Do you have trouble paying your heating and electricity bill?: No Do you have trouble taking care of your child, family member or friend?: No Do you have trouble with day-to-day activities such as bathing, preparing meals, shopping, managing finances, etc.?: No Are you currently unemployed and looking for a job?: No Are you interested in more education?: No Please select the resources that you would like help with: None Currently or been in a relationship where the following occur: No concerns reported THRIVE Score: 0 LOREE-7 AMB Questionnaire LOREE-7 Date LOREE - 7 assessed: 10/25/24 Source: Developed by Drs. Eliseo Echols, Eliza Nicholas, Arie Brennan and colleagues, with an educational henok from [employer]. Review of Systems Narrative Review of Systems - Constitutional: Denies fever. - HEENT: Reports poor hearing. Reports chronic right-sided sinus congestion and pressure, which worsens with changes in atmospheric pressure. Denies problems with swallowing. Denies vision problems other than requiring glasses. - Cardiovascular: Denies chest heaviness. - Respiratory: Denies waking up short of breath. - Gastrointestinal: Denies nausea or vomiting. Reports good bowel movements. - Genitourinary: Reports nocturia, waking twice per night to urinate. - Musculoskeletal: Reports his left shoulder is doing great after recent surgery and injection. - Neurological: Denies dizziness or syncope. - Skin: Reports a prior bump on his lip which was removed and found to be benign. Const Denies poor appetite and Denies weakness Eyes Denies no additional complaints ENT Reports Normal hearing present, Denies dizziness, Denies nasal congestion, Denies tinnitus and Denies sore throat Card Denies chest pain, Denies syncope, Denies rapid heart rate and Denies dyspnea Resp Denies cough and Denies dyspnea GI Denies change in stool character, Reports constipation, Denies diarrhea, Denies nausea and Denies vomiting Denies dysuria and Denies urinary frequency Neuro Reports Normal hearing present, Denies confusion, Denies dizziness, Denies syncope and Denies weakness Psych Denies confusion Physical exam (Primary Care) Vital Signs: Last Vital Signs Temp 97.6 F 05/09/25 09:27 Pulse 76 05/09/25 09:27 Resp 18 05/09/25 09:27 BP 128/68 05/09/25 09:27 Pulse Ox 98 05/09/25 09:27 Oxygen Delivery Method Room Air 05/09/25 09:27 BMI result Body Mass Index 27.1 Tobacco/Smoking Status: Tobacco use Status Tobacco use date assessed 10/25/24 05/09/25 09:33 Patient Tobacco Use Status Former Tobacco user 05/09/25 09:33 Tobacco use type Cigarette 05/09/25 09:33 e-Cigarette/Vaping Use Never Used 05/09/25 09:33 Thrive Assessment: Date of Thrive Assessment Date Thrive assessed 10/19/24 05/09/25 09:33 Currently or been in a relationship where the following occur: No concerns reported Narrative Physical Exam General: Cooperative, healthy appearing, comfortable, no acute distress and well developed Orientation: Patient oriented x3 Limitations: No limitations Head: Normal to inspection Ears: Hearing impaired, not checked annually Nose: Right side congested most of the time, possibly related to atmospheric pressure changes Face and sinus: Normal facial exam, history of sinus issues, right side congestion Eyes: Appearance normal, both eyes and all related structures Neck: Normal visual inspection and Yes full ROM Respiratory: Normal respiratory effort and able to speak in complete sentences. Clear to auscultation bilaterally Cardiovascular: Regular rate and rhythm. Normal S1 and S2 GI: Normal to inspection. Soft to palpation and nontender Skin: No rashes or lesions noted, recent dermatology visit for lip biopsy, benign result Neuro: Patient oriented x3 Extremities: Normal to inspection, left shoulder status post-surgery with no current pain, only discomfort managed with cortisone shot Const General: No confusion Orientation/consciousness: No confusion HENMT Head: Yes normocephalic Ears: external ears normal and TM's normal bilaterally Face and sinus: Yes normal facial exam Mouth: moist mucous membranes Throat: Yes tonsils normal Eyes Conjunctivae: conjunctivae normal Pupils: Equal, round and reactive pupils present and Pupil accommodation reflex normal Direct Ophthalmoscopy: normal light reflex Neck Neck: No lymphadenopathy Thyroid: Thyroid normal Chest Chest palpation & inspection: normal inspection of the chest Resp Effort & Inspection: normal respiratory effort and no audible wheezes Auscultation: clear to auscultation bilaterally, no crackles, no wheezes and lung sounds not diminished Cardio Rate: regular rate Rhythm: regular rhythm Peripheral pulses: radial pulses present and dorsalis pedis present GI Palpation (GI): no masses Auscultation: normal bowel sounds and normoactive bowel sounds Rectal Exam - Male: Yes deferred Skin General skin exam: no rashes or lesions noted Rashes: no rashes Neuro General: No confusion Cranial nerves: Yes Equal, round and reactive pupils present and Yes Normal hearing present Cognition (Neuro): normal cognition Gait exam (Neuro): Normal gait present Motor exam (neuro): 5/5 motor strength present throughout Deep tendon reflexes (DTR's): Right brachioradialis reflex intensity grade: 2+, Left brachioradialis reflex intensity grade: 2+, Right patellar reflex intensity grade: 2+ and Left patellar reflex intensity grade: 2+ Extrem General: No edema Coding Level of Care Code Est Pt Prev Care >65y(74806) Diagnoses Annual physical exam Z00.00 Obstructive sleep apnea G47.33 History of CVA (cerebrovascular accident) Z86.73 Benign prostatic hyperplasia with weak urinary stream N40.1; R39.12 Lower urinary tract symptom detail: weak urinary stream Lower urinary tract symptom presence: symptoms present Gastroesophageal reflux disease without esophagitis K21.9 Esophagitis presence: without esophagitis Fatty liver K76.0 Impaired fasting blood sugar R73.01 Hypercholesterolemia E78.00 Essential hypertension I10 Hypertension type: essential hypertension Generalized anxiety disorder F41.1 Hard, firm prostate R39.89 Hyperkalemia E87.5 Assessment & Plan Assessment & Plan (1) Annual physical exam: Code(s): Z00.00 - Encounter for general adult medical examination without abnormal findings Category: Medical Plan: Patient is advised to eat healthy, keep well hydrated, keep active and have adequate sleep. (2) Obstructive sleep apnea: Comment: Two thousand seventeen Code(s): G47.33 - Obstructive sleep apnea (adult) (pediatric) Category: Medical Plan: Continue to use the CPAP more than 4 hours a night and benefits from this (3) History of CVA (cerebrovascular accident): Comment: Brainstem October 2019 Code(s): Z86.73 - Personal history of transient ischemic attack (TIA), and cerebral infarction without residual deficits Category: Medical Plan: Control the cholesterol, weight, blood pressure on clopidogrel (4) BPH (benign prostatic hyperplasia): Code(s): N40.0 - Benign prostatic hyperplasia without lower urinary tract symptoms Category: Medical Qualifiers: Lower urinary tract symptom detail: weak urinary stream Lower urinary tract symptom presence: symptoms present Qualified Code(s): N40.1 - Benign prostatic hyperplasia with lower urinary tract symptoms; R39.12 - Poor urinary stream (5) GERD (gastroesophageal reflux disease): Code(s): K21.9 - Gastro-esophageal reflux disease without esophagitis Category: Medical Qualifiers: Esophagitis presence: without esophagitis Qualified Code(s): K21.9 - Gastro-esophageal reflux disease without esophagitis Plan: Avoid the foods that causes that usually spicy foods, tomato products, juices, coffee, soda and foods that your sensitive to. After eating do not lie down, allow 3-4 hours before in lie down. And keep the head of bed above 30 degrees to avoid the acid from going up. (6) Fatty liver: Code(s): K76.0 - Fatty (change of) liver, not elsewhere classified Category: Medical Plan: Low-fat diet and exercise (7) Impaired fasting blood sugar: Code(s): R73.01 - Impaired fasting glucose Category: Medical Plan: Decrease the amount of carbohydrate intake, pasta, bread, rice and potatoes are all sugar and that is aside from all the sweet stuff, remember that fruits are good but they are Sweet also. (8) Hypercholesterolemia: Code(s): E78.00 - Pure hypercholesterolemia, unspecified Category: Medical Plan: Avoid fried foods, chicken skin, eggs, butter margarine, pastries and meat. Be it pork or beef they have a lot of cholesterol LDL goal of less than 70 and triglyceride of less than 150 on Zetia 10 mg once a day and rosuvastatin 40 mg once a day (9) Hypertension: Comment: Echo October 2019 EF 60-65 Code(s): I10 - Essential (primary) hypertension Category: Medical Qualifiers: Hypertension type: essential hypertension Qualified Code(s): I10 - Essential (primary) hypertension Plan: Continue with blood pressure medication. Decrease salt intake and exercise lisinopril 5 mg once a day (10) Generalized anxiety disorder: Code(s): F41.1 - Generalized anxiety disorder Category: Medical Plan: Continue with clonazepam as needed (11) Hard, firm prostate: Code(s): R39.89 - Other symptoms and signs involving the genitourinary system Category: Medical (12) Hyperkalemia: Code(s): E87.5 - Hyperkalemia Category: Medical Plan Plan Patient was informed and verbally consented to the use of an ambient scribe for clinic note documentation during this visit. 1. Hypercholesterolemia The patient's LDL cholesterol has increased to 85, which is above the goal of less than 70 given his history of a stroke. He is already on maximum tolerated oral therapy with rosuvastatin 40 mg and ezetimibe 10 mg. His family history is significant for high cholesterol. The plan is to recheck his cholesterol in three months, and if the level is still elevated, we will need to discuss other treatment options, such as PCSK9 inhibitor injections. 2. Hyperkalemia A recent lab test revealed a new finding of mild hyperkalemia with a potassium level of 5.4. This could be related to his lisinopril, diet, or be a spurious result from the blood draw. The plan is to repeat his blood work in two weeks to re-evaluate the potassium level. 3. Firm Prostate And Family History Of Prostate Cancer The digital rectal exam revealed a firm prostate, which is a concern given his significant family history of prostate cancer in both his father and brother. Although his PSA level is stable and normal, a referral to urology will be placed for further evaluation and to determine if additional workup is needed. 4. Prediabetes The patient's hemoglobin A1c is stable at 6.0%, which is in the prediabetic range. No medication is indicated at this time, but he is advised to continue monitoring his diet, particularly carbohydrate intake, to prevent progression. 5. Chronic Sinusitis The patient reports persistent right-sided sinus congestion and pressure, which he states is worse with changes in atmospheric pressure. He has a history of allergies and a prior sinus CT showed ethmoid sinus thickening. The plan is to continue conservative management with regular sinus rinses and to use Afrin sparingly for severe symptoms, for no more than three consecutive days. Discussion Notes I reviewed the patient's recent lab results with him, specifically noting three areas for follow-up: cholesterol, potassium, and sugar. I explained that his bad cholesterol (LDL) had risen to 85, which is above our goal of less than 70 given his history of a stroke, and that we would re-test it in three months; if it remains high, we would have to discuss injectable medications as he is already on maximal oral therapy. I also discussed the new finding of a mildly elevated potassium level of 5.4, explaining it could be spurious, but that we need to repeat the test in two weeks to be safe. Regarding his sugars, I noted his A1c is stable at 6.0 in the prediabetic range, and encouraged continued dietary monitoring. I informed the patient that during the digital rectal exam, his prostate felt hard. Given this finding and his significant family history of prostate cancer, I recommended a referral to urology for their expert opinion, even though his PSA blood test is normal. We discussed his chronic right-sided sinus congestion, acknowledging his previous evaluations with ENT. I advised that continuing regular sinus rinses is the best approach, and that using decongestant sprays like Afrin should be limited to no more than three days to avoid rebound effects. We discussed that more invasive procedures like stents are typically reserved for severe cases due to the risk of creating other problems. I advised him that lab orders have been placed for a blood draw in two weeks and another in three months. We scheduled a follow-up visit in three months to review all results and make any necessary adjustments to his care plan. Patient Instructions - Please get your blood drawn in two weeks to recheck your potassium level. - You will need another blood test in three months to check your cholesterol again. The orders for both tests have been sent to the lab. - We are sending a referral to a urology specialist to take a closer look at your prostate because of my exam finding and your family history. - Continue taking all your current medications as prescribed. - For your ongoing sinus pressure, continue to use sinus rinses regularly. If you use a decongestant spray like Afrin, do not use it for more than 3 days in a row. - Continue to use your CPAP machine every night for your sleep apnea. - Continue with your healthy diet and exercise habits. - Please schedule a follow-up appointment to see me in three months. Orders: Orders Lipid Panel 3 Months E78.00 - Pure hypercholesterolemia, unspecified, E87.5 - Hyperkalemia Comprehensive Met. Panel 3 Months E87.5 - Hyperkalemia Hemoglobin A1c 3 Months E87.5 - Hyperkalemia Basic Metabolic Panel 2 Weeks E87.5 - Hyperkalemia Referrals Urology Referral R39.89 - Other symptoms and signs involving the genitourinary system
[2025-05-09 09:27] VITALS: BP 128/68; PULSE 76; RESP 18; TEMP 36.4; O2SAT 98; BMI 27.1
--- OUTSIDE RECORDS SUMMARY | 2025-05-09 10:02 | XMS_ITS | Patient Health Record ---
[facility] Organization [facility] Address [address] [place] [address] Care Team Providers Care Core Oven Tender Name Role Phone Garcia Vergara Primary Care Provider Andrew Zabala Unavailable [phone] Allergies No Known Allergies Reason For Referral No Information Medications Medication SIG (Take, Route, Frequency, Duration) Notes Start Date End Date Status Rosuvastatin Calcium 40 MG 1 tablet Oral ly Once a day; Duration: 30 day(s) Active Omeprazole 20 MG 1 capsule 30 minutes before morning meal Orally Once a day; Duration: 30 day(s) Active Vitamin D3 Super Strength Active Night Splint AFO - L1930 as directed Active clonazePAM 1 MG 1 tablet Orally Once a day Active Ezetimibe 10 MG 1 tablet Orally Once a day; Duration: 30 day(s) Active Clopidogrel Bisulfate Active Lisinopril 5 MG 1 tablet Orally Once a day; Duration: 30 day(s) Active Iron Supplement 220 (44 Fe) MG/5ML as directed Orally Active Otic Care Active Multivitamin - 1 tablet Orally Once a day; Duration: 30 day(s) Active Immunizations Vaccine Route Administration Date Status Comme nts COVID-19 Pfizer BioNTech Vaccine Unknown 05/31/2020 Administered 1st 05/10/2020 Social History Tobacco Use: Social History Observation Description Date Details (start date - stop date) Never Smoker NA - NA Tobacco Use/Smoking Question Answer Notes Are you a: nonsmoker Alcohol Screen Question Answer Notes Did you have a drink contain ing alcohol in the past year? Yes How often did you have 6 or more drinks on one occasion in the past year? Daily or almost daily (4 points) Points 4 Interpretation Positive Tobacco use other than smoking: Question Answer Notes Are you an other tobacco user? No Plan Of Treatment Pending Test Test Name Order Date X ray : Foot, left 3V 12/09/2020 X ray : Foot, right 3V 12/09/2020 Insurance Providers Payer Name Payer Address Payer Phone Subscriber Number Group Number Insured Name Patient Relationship to Insured Coverage Start Date Coverage End Date [employer] Benefits [address] [address] [place] [address] [id number] Samuel Wright Self - patient is the insured Medical (General) History Medical History History ICD Code Anxiety Back,Hip,and Knee pain Broken bones High blood pressure Numbness Sciatica Stroke Measles Sleep apnea Hearing Impaired Surgical History Surgery Date(Month/Year) vasectomy 1988 inguinal hernia repair 1998 knee surgery, right 2004 hemorroids 2009
--- OUTSIDE RECORDS SUMMARY | 2025-05-09 10:02 | XMS_ITS | Patient Health Record ---
Author Organization [facility] Address [address] [place] [phone] Care Team Providers Care Executive Coach Name Role Phone Garcia Vergara MD Primary [...] Status Risk Notes Problem Colon cancer screening (097517913) Colon cancer screening (Z12.11) Active confirmed Problem Pre-procedure evaluation check (454457050) Encounter for other preprocedural examination (Z01.818) Active confirmed Problem Long-term current use of antiplatelet drug (617469423004937) adjunct faculty for medical terminology (current) use of aspirin (Z79.82) Active confirmed Problem Elevated liver enzymes level (443917636) Elevated liver function tests (R79.89) Active confirmed Problem Gastroesophageal reflux disease without esophagitis (560061512) Gastroesophageal reflux disease without esophagitis (K21.9) Active confirmed Vital Signs Temperature 97.5 degrees Fahrenheit 08/23/2024 Blood pressure diastolic 01 mm Hg 08/23/2024 Height 68 in 08/23/2024 Blood pressure systolic 001 mm Hg 08/23/2024 Weight 175.2 lbs 08/23/2024 BMI 26.64 kg/m2 08/23/2024 Encounters Encounter Location Date Provider Diagnosis [facility] [address] [place] [phone] 08/23/2024 Socrates Briseno Jr Elevated liver function tests R79.89 ; Gastroesophageal reflux disease without esophagitis K21.9 and Colon cancer screening Z12.11 [facility] [address] [place] [phone] 08/23/[address] [facility] [address] [place] [phone] 05/26/2024 Socrates Briseno Jr Assessments Encounter Date [...] Insured Coverage Start Date Coverage End Date [facility] [address] [place], [place] [id number] ADRIEL CLARKE Self - patient is the insured Medical (General) History Medical History History ICD Code elevated cholesterol insomnia minor stroke 10/2019 hard of hearing Hypertension Gastroesophageal reflux disease, EGD 12/22 02/10, no BE or HP. Colonoscopy 08/19/18, normal, ten-year fo llowup Surgical History Surgery Date(Month/Year) hemorrhoidectomy right knee inguinal hernia repair back surgery
== END 2025-05-09 10:11 | disposition home or self-care (01) ==
LOC: HO.HMCH 09:09
PROVIDERS: PCP Internal Medicine; Visit Provider Internal Medicine
DX: Z00.00 Encounter for general adult medical examination without abnormal findings (principal); G47.33 Obstructive sleep apnea (adult) (pediatric); Z86.73 Personal history of transient ischemic attack (TIA), and cerebral infarction without residual deficits; N40.1 Benign prostatic hyperplasia with lower urinary tract symptoms; R39.12 Poor urinary stream; K21.9 Gastro-esophageal reflux disease without esophagitis; K76.0 Fatty (change of) liver, not elsewhere classified; R73.01 Impaired fasting glucose; E78.00 Pure hypercholesterolemia, unspecified; I10 Essential (primary) hypertension; F41.1 Generalized anxiety disorder; R39.89 Other symptoms and signs involving the genitourinary system; E87.5 Hyperkalemia

== ENCOUNTER → 2025-05-09 09:08 | Outpatient (BNVA) | payer MEDICARE, SELFPAY | PROVIDERS: PCP Internal Medicine; Visit Provider Internal Medicine | DX: Z00.00 Encounter for general adult medical examination without abnormal findings (principal); G47.33 Obstructive sleep apnea (adult) (pediatric); I10 Essential (primary) hypertension; F41.9 Anxiety disorder, unspecified; L21.9 Seborrheic dermatitis, unspecified; R73.03 Prediabetes; N40.1 Benign prostatic hyperplasia with lower urinary tract symptoms; R39.12 Poor urinary stream; K76.0 Fatty (change of) liver, not elsewhere classified; K21.9 Gastro-esophageal reflux disease without esophagitis; R73.01 Impaired fasting glucose; E78.00 Pure hypercholesterolemia, unspecified; F41.1 Generalized anxiety disorder; R39.89 Other symptoms and signs involving the genitourinary system; E87.5 Hyperkalemia; J32.9 Chronic sinusitis, unspecified; Z86.73 Personal history of transient ischemic attack (TIA), and cerebral infarction without residual deficits; Z79.899 Other long term (current) drug therapy | CPT/HCPCS: 99397 ==

== ENCOUNTER 2025-05-23 06:06 | Outpatient (REF) | payer MEDICARE, SELFPAY ==
--- OUTSIDE RECORDS SUMMARY | 2025-05-23 06:09 | XMS_ITS | Patient Health Record ---
[facility] Address [address] [place] [address] Care Team Providers Care Program Professional Name Role Phone Garcia Vergara Primary Care Provider Andrew Zabala Unavailable [phone] Allergies No Known Allergies Reason For Referral [...] Coverage End Date [employer] [address] [address] [place] [address] [id number] Samuel Wright Self - patient is the insured Medical (General) History Medical History History ICD Code Anxiety Back,Hip,and Knee pain Broken bones High blood pressure Numbness Sciatica Stroke Measles Sleep apnea Hearing Impaired Surgical History Surgery Date(Month/Year) vasectomy 1988 inguinal hernia repair 1998 knee surgery, right 2004 hemorroids 2009
--- OUTSIDE RECORDS SUMMARY | 2025-05-23 06:09 | XMS_ITS | Patient Health Record ---
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) ferry terminal supervisor (current) use of aspirin (Z79.82) Active confirmed Problem Elevated liver enzymes level (268809986) Elevated liver function tests (R79.89) Active confirmed Problem Gastroesophageal reflux disease without esophagitis (918469582) Gastroesophageal reflux disease without esophagitis (K21.9) Active confirmed Vital Signs Temperature 97.5 degrees Fahrenheit 08/23/2024 Blood pressure diastolic 01 mm Hg 08/23/2024 Height 68 in 08/23/2024 Blood pressure systolic 001 mm Hg 08/23/2024 Weight 175.2 lbs 08/23/2024 BMI 26.64 kg/m2 08/23/2024 Encounters Encounter Location Date Provider Diagnosis [facility] [address] [place] [phone] 08/23/2024 Socrates Briseno Jr Elevated liver function tests R79.89 ; Gastroesophageal reflux disease without esophagitis K21.9 and Colon cancer screening Z12.11 [facility] [address] [place] [phone] 08/23/2024 Socrates Briseno Jr [facility] [address] [place] [phone] 05/26/2024 Socrates Briseno Jr Assessments Encounter Date [...] Insured Coverage Start Date Coverage End Date [facility] [address] [place], [place] [id number] ADRIEL CLARKE Self - patient is the insured Medical (General) History Medical History History ICD Code elevated cholesterol insomnia minor stroke 10/2019 hard of hearing Hypertension Gastroesophageal reflux disease, EGD 12/22 02/10, no BE or HP. Colonoscopy 08/19/18, normal, ten-year fo llowup Surgical History Surgery Date(Month/Year) hemorrhoidectomy right knee inguinal hernia repair back surgery
[2025-05-23 07:54] LABS: Alanine Aminotransferase 19 U/L (0-40); Albumin Level 4.4 g/dL (3.5-5.0); Alkaline Phosphatase 70 U/L (39-117); Anion Gap 12 (12-20); Aspartate Amino Transferase 21 U/L (5-37); Blood Urea Nitrogen 14 mg/dL (9-16); Calcium 9.7 mg/dL (8.4-10.2); Carbon Dioxide 26 mmol/L (22-29); Chloride 108 mmol/L (96-108); Cholesterol 147 mg/dL (<200); Estimated Glomerular Filt Rate > 60; HDL Cholesterol 72 mg/dL (>40); Potassium 4.5 mmol/L (3.3-5.1); Sodium 141 mmol/L (135-145); Total Protein 7.0 g/dL (6.5-8.0); Triglycerides 52 mg/dL (<150)
== END 2025-05-23 06:07 | disposition home or self-care (01) ==
LOC: HO.LAB 06:06
PROVIDERS: PCP Internal Medicine; Visit Provider Internal Medicine
DX: E78.00 Pure hypercholesterolemia, unspecified (principal); Z13.1 Encounter for screening for diabetes mellitus; Z86.73 Personal history of transient ischemic attack (TIA), and cerebral infarction without residual deficits
CPT/HCPCS: 36415; 80053; 80061; 83036